=== PATIENT | male | born 1950 | race Caucasian/White ===

== ENCOUNTER 2018-08-21 12:47 | Inpatient (IN) | payer MEDICARE ==
[~2018-08-21] VITALS: Ht 172.7 cm; Wt 67.6 kg
[~2018-08-21 12:47] MED LIST: ASPI-612 PO; IBUP200C PO; SIMV20TA3 PO
[2018-08-21 13:21] LABS: BASO % 1 % (0-3); EOS # 0.2 x10^3/uL (0.0-0.7); EOS % 2 % (0-3); HEMATOCRIT 43.3 % (39.0-53.0); HEMOGLOBIN 14.2 g/dL (13.0-17.5); LYMPH # 2.1 x10^3/uL (1.0-4.8); LYMPH % 28 % (24-48); MEAN CORPUSCULAR HEMOGLOBIN 31 pg (25-35); MEAN CORPUSCULAR HGB CONC 33 g/dL (31-37); MEAN CORPUSCULAR VOLUME 94 fL (79-100); MONO # 0.7 x10^3/uL (0.0-1.1); MONO % 9 % (0-9); NEUT # 4.5 x10^3uL (1.8-7.7); NEUT % 61 % (31-73); PLATELET COUNT 180 x10^3/uL (140-400); RED BLOOD COUNT 4.62 x10^6/uL (4.30-5.70); RED CELL DISTRIBUTION WIDTH 14.5 % (11.5-14.5); WHITE BLOOD COUNT 7.4 x10^3/uL (4.0-11.0)
--- NOTE | 2018-08-21 13:24 | RAD ---
CHEST AP ONLY Clinical Indication: RAPID HEART RATE Comparison: CT chest without contrast May 24, 2016. Findings: The cardiomediastinal silhouette is normal. Lungs are clear. There is no pneumothorax. No pleural effusion is appreciated. There are old right posterior rib fractures. IMPRESSION: No acute cardiopulmonary process. Electronically signed by: Steve Linn MD (08/21/2018 1:21 PM) [id number]
[2018-08-21 13:29] LABS: CALCIUM 9.2 mg/dL (8.5-10.1); CREATININE 0.8 mg/dL (0.7-1.3); GFR 96.1; POTASSIUM 4.4 mmol/L (3.5-5.1)
[2018-08-21 13:32] LABS: ALBUMIN/GLOBULIN RATIO 1.2 (1.0-1.7); TOTAL BILIRUBIN 0.9 mg/dL (0.2-1.0); TOTAL PROTEIN 7.3 g/dL (6.4-8.2)
--- NOTE | 2018-08-21 13:49 | PHYS DOC ---
Past Medical History Past Medical History: Depression, GERD, Other Additional Past Medical Histor: PROSTATE CA, SLEEP APNEA Past Surgical History: Other Additional Past Surgical Histo: PROSTECTOMY D/T CA, Alcohol Use: Heavy Drug Use: None Adult General Chief Complaint Chief Complaint: BRADYCARDIA HPI HPI Patient is a 68-year-old male who was sent over from the surgery center secondary to a heart rate in the 30s. Anesthesia evaluated the patient prior to the surgical procedure and noted that he appeared to be in bigeminy but only perfusing rate of 30. Patient has no chest pain shortness of breath or dyspnea on exertion. He is never had any history of bradycardia or bigeminy in the past. He did have an unexplained fall recently but he did not hurt himself and he does describe some vague associated dizziness. He has not had any nausea or vomiting. He denies fever or chills.[] Review of Systems Review of Systems Constitutional: Denies fever or chills [] Eyes: Denies change in visual acuity, redness, or eye pain [] HENT: Denies nasal congestion or sore throat [] Respiratory: Denies cough or shortness of breath [] Cardiovascular: No additional information not addressed in HPI [] GI: Denies abdominal pain, nausea, vomiting, bloody stools or diarrhea [] : Denies dysuria or hematuria [] Musculoskeletal: Denies back pain or joint pain [] Integument: Denies rash or skin lesions [] Neurologic: Denies headache, focal weakness or sensory changes [] Endocrine: Denies polyuria or polydipsia [] All other systems were reviewed and found to be within normal limits, except as documented in this note. Allergies Allergies Allergies Coded Allergies Type Severity Reaction Last Updated Verified No Known Drug Allergies 09/21/13 No Physical Exam Physical Exam Constitutional: Well developed, well nourished, no acute distress, non-toxic appearance. [] HENT: Normocephalic, atraumatic, bilateral external ears normal, oropharynx moist, no oral exudates, nose normal. [] Eyes: PERRLA, EOMI, conjunctiva normal, no discharge. [] Neck: Normal range of motion, no tenderness, supple, no stridor. [] Cardiovascular:Heart rate regular rhythm, no murmur [] Lungs & Thorax: Bilateral breath sounds clear to auscultation [] Abdomen: Bowel sounds normal, soft, no tenderness, no masses, no pulsatile masses. [] Skin: Warm, dry, no erythema, no rash. [] Back: No tenderness, no CVA tenderness. [] Extremities: No tenderness, no cyanosis, no clubbing, ROM intact, no edema. [] Neurologic: Alert and oriented X 3, normal motor function, normal sensory function, no focal deficits noted. [] Psychologic: Affect normal, judgement normal, mood normal. [] Current Patient Data Vital Signs Vital Signs Date Time Temp Pulse Resp B/P (MAP) Pulse Ox O2 Delivery O2 Flow Rate FiO2 08/21/18 12:47 98.6 51 20 189/110 (136) 98 Room Air 98.6 Lab Values Laboratory Tests Test 08/21/18 13:05 White Blood Count 7.4 x10^3/uL (4.0-11.0) Red Blood Count 4.62 x10^6/uL (4.30-5.70) Hemoglobin 14.2 g/dL (13.0-17.5) Hematocrit 43.3 % (39.0-53.0) Mean Corpuscular Volume 94 fL (79-100) Mean Corpuscular Hemoglobin 31 pg (25-35) Mean Corpuscular Hemoglobin Concent 33 g/dL (31-37) Red Cell Distribution Width 14.5 % (11.5-14.5) Platelet Count 180 x10^3/uL (140-400) Neutrophils (%) (Auto) 61 % (31-73) Lymphocytes (%) (Auto) 28 % (24-48) Monocytes (%) (Auto) 9 % (0-9) Eosinophils (%) (Auto) 2 % (0-3) Basophils (%) (Auto) 1 % (0-3) Neutrophils # (Auto) 4.5 x10^3uL (1.8-7.7) Lymphocytes # (Auto) 2.1 x10^3/uL (1.0-4.8) Monocytes # (Auto) 0.7 x10^3/uL (0.0-1.1) Eosinophils # (Auto) 0.2 x10^3/uL (0.0-0.7) Basophils # (Auto) 0.0 x10^3/uL (0.0-0.2) Sodium Level 142 mmol/L (136-145) Potassium Level 4.4 mmol/L (3.5-5.1) Chloride Level 102 mmol/L (98-107) Carbon Dioxide Level 30 mmol/L (21-32) Anion Gap 10 (6-14) Blood Urea Nitrogen 17 mg/dL (8-26) Creatinine 0.8 mg/dL (0.7-1.3) Estimated GFR (Cockcroft-Gault) 96.1 BUN/Creatinine Ratio 21 (6-20) H Glucose Level 96 mg/dL (70-99) Calcium Level 9.2 mg/dL (8.5-10.1) Magnesium Level 2.0 mg/dL (1.8-2.4) Total Bilirubin 0.9 mg/dL (0.2-1.0) Aspartate Amino Transferase (AST) 23 U/L (15-37) Alanine Aminotransferase (ALT) 56 U/L (16-63) Alkaline Phosphatase 138 U/L (46-116) H Troponin I Quantitative < 0.017 ng/mL (0.000-0.055) Total Protein 7.3 g/dL (6.4-8.2) Albumin 4.0 g/dL (3.4-5.0) Albumin/Globulin Ratio 1.2 (1.0-1.7) Laboratory Tests 08/21/18 13:05 Laboratory Tests 08/21/18 13:05 EKG EKG EKG: Patient is in bigeminy rate of 60[] Radiology/Procedures Radiology/Procedures [] Impressions: PROCEDURE: CHEST AP ONLY CHEST AP ONLY Clinical Indication: RAPID HEART RATE Comparison: CT chest without contrast May 24, 2016. Findings: The cardiomediastinal silhouette is normal. Lungs are clear. There is no pneumothorax. No pleural effusion is appreciated. There are old right posterior rib fractures. IMPRESSION: No acute cardiopulmonary process. Course & Med Decision Making Course & Med Decision Making Pertinent Labs and Imaging studies reviewed. (See chart for details) [ED course: Evaluation reveals a 68-year-old symptom-free male who is having some bradycardia and bigeminy. He is asymptomatic with this but he will need to be admitted for evaluation. I spoke with Dr. Puga who agreed to accept the patient for admission. Melisa, the nurse practitioner with cardiology, evaluated the patient in the ED and agreed that the patient needed to be observed overnight.] Dragon Disclaimer Dragon Disclaimer This electronic medical record was generated, in whole or in part, using a voice recognition dictation system. Departure Departure Impression: Primary Impression: Bigeminal rhythm Disposition: ADMITTED INPATIENT Admitting Physician: Dylan Will Condition: GUARDED Referrals: KIMBERLEE SUH (PCP) MICHAEL DONIS DO Aug 21, 2018 13:49
[2018-08-21] MEDS ORDERED: PANT20TA2 PO (13:55)
[2018-08-21] MEDS ORDERED: CITA20TA6 PO (13:55)
[2018-08-21] MEDS ORDERED: OXYB10TA PO (13:55)
[2018-08-21] MEDS ORDERED: ALPR1TAB2 PO (13:55)
--- NOTE | 2018-08-21 15:19 | EKG ---
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
--- NOTE | 2018-08-21 16:02 | HP ---
ADMIT DATE: 08/21/2018 CHIEF COMPLAINT: Bradycardia. HISTORY OF PRESENT ILLNESS: The patient is a pleasant 68-year-old male who was going to have surgery on his right eye today. He was at the surgery center, and they noted that he had bradycardia into the 30s. They sent him into the ER for evaluation. He is now here where we have noted him to be bradycardic into the 40s. We have not documented any 30s just yet. He describes some dizziness, states he tripped and/or passed out the other day. His states this has been occurring off and on for some time, but he has not been telling people. I have discussed the case with ER physician. We are going to admit the patient and consult Cardiology. PAST MEDICAL HISTORY: GERD, depression, prostate cancer, sleep apnea, prostatectomy, heavy alcohol use, right lower eyelid entropion. ALLERGIES: None. FAMILY HISTORY: Coronary artery disease. SOCIAL HISTORY: He drinks, no to smoking, drugs. He is . MEDICATIONS: Reviewed. He is on citalopram, Xanax, Protonix and oxybutynin. REVIEW OF SYSTEMS: GENERAL: No history of weight change, weakness or fevers. SKIN: No bruising, hair changes or rashes. EYES: No blurred, double or loss of vision. NOSE AND THROAT: No history of nosebleeds, hoarseness or sore throat. HEART: No history of palpitations, chest pain or shortness of breath on exertion. LUNGS: Denies cough, hemoptysis, wheezing or shortness of breath. GASTROINTESTINAL: Denies changes in appetite, nausea, vomiting, diarrhea or constipation. GENITOURINARY: No history of frequency, urgency, hesitancy or nocturia. NEUROLOGIC: Denies history of numbness, tingling, tremor or weakness. PSYCHIATRIC: No history of panic, anxiety or depression. ENDOCRINE: No history of heat or cold intolerance, polyuria or polydipsia. EXTREMITIES: Denies muscle weakness, joint pain, pain on walking or stiffness. PHYSICAL EXAMINATION: VITAL SIGNS: Temperature 98, pulse 50, respirations 18, blood pressure 189/70. GENERAL: He is alert, cooperative, requesting to go home. His is here. She is a good support for him. She is an RN who used to work here and still works p.r.n. HEART: Distant S1, S2. Bradycardic. LUNGS: Clear. ABDOMEN: Soft. EXTREMITIES: No edema. SKIN: No rashes. ENDOCRINE: No thyromegaly. LYMPHATICS: No cervical nodes. HEMATOPOIETIC: No bruising. LABORATORY DATA: Hematology is normal. Electrolytes are normal. ASSESSMENT AND PLAN: Bradycardia. The patient has been admitted. We will do cardiac monitoring, serial enzymes, serial EKGs, echocardiogram, consult Cardiology. Home meds. Deep venous thrombosis prophylaxis, physical therapy, occupational therapy. LONG-TERM PROGNOSIS: Guarded. NIURKA DOWD DO DR: LA/viki JOB#: [id number] / [id number]
[2018-08-21 16:10] VITALS: BP 173/67
--- NOTE | 2018-08-21 16:21 | PDOC2 ---
SHAD BALBUENA BLEACHER LARD 08/21/18 1621: CARDIAC CONSULT DATE OF CONSULT Date of Consult DATE: 08/21/18 TIME: 16:01 REASON FOR CONSULT Reason for Consult: bradycardia REFERRING PHYSICIAN Referring Physician: Dr. Cerda SOURCE Source: Chart review, Patient HISTORY OF PRESENT ILLNESS HISTORY OF PRESENT ILLNESS This is a 68 yo male who presented from surgical center due to arrhythmia. Patient has a history of inverted eyelid. Was scheduled to have corrective surgery today. Presented to surgical center and placed on telemetry monitoring prior to surgery. Was noted to be in bigeminy with an atrial rate of 30. Was referred to the ED for further evaluation and treatment. Patient asymptomatic. Denies any specific complaints including dizziness, syncope, diaphoresis, SOA, chest pain, or nausea/vomiting. 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 No previous h/o arrhythmias. concerned that he has been more forgetful over the last couple of months. Friday evening fell on the kitchen floor. reports no LOC. Patient cannot recall fall whatsoever. No complaints of dizziness have been report to . No previous history of cardiac disease. Heart rhythm presently intermittent between NSR and bigeminy with a rate near 60. PAST MEDICAL HISTORY Cardiovascular: Hyperlipidemia, Other (AAA followed by Dr. Inman) Pulmonary: Other (REHAN- no CPAP) CENTRAL NERVOUS SYSTEM: Other (no pertinet hx) GI: GERD Heme/Onc: No pertinent hx Hepatobiliary: No pertinent hx Psych: Anxiety Musculoskeletal: Osteoarthritis Rheumatologic: No pertinent hx Infectious disease: No pertinent hx ENT: No pertinent hx Renal/: Prostate Ca. Endocrine: No pertinent hx Dermatology: No pertinent hx PAST SURGICAL HISTORY Past Surgical History: Cholecystectomy, Tonsillectomy, Other (prostatectomy ) SOCIAL HISTORY Smoke: No ALCOHOL: none Drugs: None Lives: with Family ALLERGIES ALLERGIES: Coded Allergies: No Known Drug Allergies (Unverified , 09/21/13) ROS Review of System 14 point ROS conducted with pertinent positives noted above in HPI. PHYSICAL EXAM General: Alert, Oriented X3, Cooperative, No acute distress HEENT: Atraumatic, EOMI Lungs: Clear to auscultation, Normal air movement Heart: Regular rate, Normal S1, Normal S2, Other (SR with intermittent bigeminy ) Extremities: No edema, Normal pulses Skin: No breakdown, No significant lesion Neuro: Normal speech, Sensation intact Psych/Mental Status: Mental status NL, Mood NL MUSCULOSKELETAL: Osteoarthritic changes both hands VITALS VITALS Vital Signs Date Time Temp Pulse Resp B/P (MAP) Pulse Ox O2 Delivery O2 Flow Rate FiO2 08/21/18 14:50 60 26 152/70 (97) 95 Room Air 08/21/18 12:47 98.6 98.6 LABS Lab: Laboratory Tests Test 08/21/18 13:05 White Blood Count 7.4 x10^3/uL (4.0-11.0) Red Blood Count 4.62 x10^6/uL (4.30-5.70) Hemoglobin 14.2 g/dL (13.0-17.5) Hematocrit 43.3 % (39.0-53.0) Mean Corpuscular Volume 94 fL (79-100) Mean Corpuscular Hemoglobin 31 pg (25-35) Mean Corpuscular Hemoglobin Concent 33 g/dL (31-37) Red Cell Distribution Width 14.5 % (11.5-14.5) Platelet Count 180 x10^3/uL (140-400) Neutrophils (%) (Auto) 61 % (31-73) Lymphocytes (%) (Auto) 28 % (24-48) Monocytes (%) (Auto) 9 % (0-9) Eosinophils (%) (Auto) 2 % (0-3) Basophils (%) (Auto) 1 % (0-3) Neutrophils # (Auto) 4.5 x10^3uL (1.8-7.7) Lymphocytes # (Auto) 2.1 x10^3/uL (1.0-4.8) Monocytes # (Auto) 0.7 x10^3/uL (0.0-1.1) Eosinophils # (Auto) 0.2 x10^3/uL (0.0-0.7) Basophils # (Auto) 0.0 x10^3/uL (0.0-0.2) Sodium Level 142 mmol/L (136-145) Potassium Level 4.4 mmol/L (3.5-5.1) Chloride Level 102 mmol/L (98-107) Carbon Dioxide Level 30 mmol/L (21-32) Anion Gap 10 (6-14) Blood Urea Nitrogen 17 mg/dL (8-26) Creatinine 0.8 mg/dL (0.7-1.3) Estimated GFR (Cockcroft-Gault) 96.1 BUN/Creatinine Ratio 21 (6-20) Glucose Level 96 mg/dL (70-99) Calcium Level 9.2 mg/dL (8.5-10.1) Magnesium Level 2.0 mg/dL (1.8-2.4) Total Bilirubin 0.9 mg/dL (0.2-1.0) Aspartate Amino Transf (AST/SGOT) 23 U/L (15-37) Alanine Aminotransferase (ALT/SGPT) 56 U/L (16-63) Alkaline Phosphatase 138 U/L (46-116) Troponin I Quantitative < 0.017 ng/mL (0.000-0.055) Total Protein 7.3 g/dL (6.4-8.2) Albumin 4.0 g/dL (3.4-5.0) Albumin/Globulin Ratio 1.2 (1.0-1.7) ASSESSMENT/PLAN ASSESSMENT/PLAN 1. Arrhythmia; bigeminy. asymptomatic. Initially presented to ED in [facility], but back in NSR prior to arrival on the floor. 2. Accelerated hypertension 3. Hyperlipidemia; previously taken off statin 4. REHAN- no CPAP 5. GERD Recommendations Check TSH] Hydralazine IV PRN. Start lisinopril if blood pressure remains elevated. Obtain echo to assess LV systolic function (may be done as an outpatient) Monitor telemetry overnight. If no significant arrhythmias noted overnight, may discharge from a CV standpoint and will arrange for outpatient event monitor. ELAINA ZAMARRIPA MD 08/21/182055: CARDIAC CONSULT ASSESSMENT/PLAN ASSESSMENT/PLAN Patient seen and examined. Agree with MORTGAGE LENDER's assessment and plan. Bigeminy resolved Mg level normal BP better controlled Plan outpatient echo and event monitor for further evaluation Thank you for your consultation SHAD BALBUENA APRN Aug 21, 2018 16:21 ELAINA ZAMARRIPA MD Aug 21, 2018 20:56
[2018-08-21] MEDS ORDERED: hydrALAZINE 20 MG/ML VIAL. IVP PRN (16:30)
[2018-08-21 17:08] LABS: CHOLESTEROL/HDL RATIO 2.2
[2018-08-21 18:18] VITALS: BP 132/75
[2018-08-21 19:00] VITALS: BP 138/68
[2018-08-21] MEDS: ALPRAZolam 1 MG TABLET PO SCH (21:10)
[2018-08-21 23:13] VITALS: BP 132/75
[2018-08-22 03:00] VITALS: BP 129/74
[2018-08-22] MEDS ORDERED: PANTOPRAZOLE 40 MG TABLET.DR. PO SCH (07:30)
[2018-08-22 08:05] VITALS: BP 147/78
[2018-08-22] MEDS: ALPRAZolam 1 MG TABLET PO SCH (08:44)
[2018-08-22] MEDS ORDERED: OXYBUTYNIN CHLORIDE 5 MG TABLET PO SCH (09:00)
[2018-08-22] MEDS ORDERED: CITALOPRAM 20 MG TABLET. PO SCH (09:00)
[2018-08-22 11:11] VITALS: BP 136/58
--- NOTE | 2018-08-22 11:41 | PDOC ---
PROGRESS NOTES Chief Complaint Chief Complaint Bigeminy/Bradycardia GERD Depression History of prostate cancer s/p prostatectomy Sleep apnea Heavy alcohol use History of Present Illness History of Present Illness Patient was seen and examined in his room this morning. He was lying in bed. laboratory monitor shows intermittent bigeminy. Cardiology following. Cardiac workup in progress. Heart rate is in the high 40s to low 50s. Discussed with RN. Vitals Vitals Vital Signs Date Time Temp Pulse Resp B/P (MAP) Pulse Ox O2 Delivery O2 Flow Rate FiO2 08/22/18 11:11 98.2 56 17 136/58 (84) 99 Room Air 98.2 Physical Exam General: Alert, Oriented X3, Cooperative, No acute distress Heart: Regular rate, Normal S1, Normal S2, Other (SR with intermittent bigeminy ) Lungs: Clear, Other (no rhonchi) Abdomen: Soft, No tenderness Extremities: No clubbing, No cyanosis Skin: No rashes, No breakdown, No significant lesion Labs LABS Laboratory Tests Test 08/21/18 13:05 White Blood Count 7.4 x10^3/uL (4.0-11.0) Red Blood Count 4.62 x10^6/uL (4.30-5.70) Hemoglobin 14.2 g/dL (13.0-17.5) Hematocrit 43.3 % (39.0-53.0) Mean Corpuscular Volume 94 fL (79-100) Mean Corpuscular Hemoglobin 31 pg (25-35) Mean Corpuscular Hemoglobin Concent 33 g/dL (31-37) Red Cell Distribution Width 14.5 % (11.5-14.5) Platelet Count 180 x10^3/uL (140-400) Neutrophils (%) (Auto) 61 % (31-73) Lymphocytes (%) (Auto) 28 % (24-48) Monocytes (%) (Auto) 9 % (0-9) Eosinophils (%) (Auto) 2 % (0-3) Basophils (%) (Auto) 1 % (0-3) Neutrophils # (Auto) 4.5 x10^3uL (1.8-7.7) Lymphocytes # (Auto) 2.1 x10^3/uL (1.0-4.8) Monocytes # (Auto) 0.7 x10^3/uL (0.0-1.1) Eosinophils # (Auto) 0.2 x10^3/uL (0.0-0.7) Basophils # (Auto) 0.0 x10^3/uL (0.0-0.2) Sodium Level 142 mmol/L (136-145) Potassium Level 4.4 mmol/L (3.5-5.1) Chloride Level 102 mmol/L (98-107) Carbon Dioxide Level 30 mmol/L (21-32) Anion Gap 10 (6-14) Blood Urea Nitrogen 17 mg/dL (8-26) Creatinine 0.8 mg/dL (0.7-1.3) Estimated GFR (Cockcroft-Gault) 96.1 BUN/Creatinine Ratio 21 (6-20) Glucose Level 96 mg/dL (70-99) Calcium Level 9.2 mg/dL (8.5-10.1) Magnesium Level 2.0 mg/dL (1.8-2.4) Total Bilirubin 0.9 mg/dL (0.2-1.0) Aspartate Amino Transf (AST/SGOT) 23 U/L (15-37) Alanine Aminotransferase (ALT/SGPT) 56 U/L (16-63) Alkaline Phosphatase 138 U/L (46-116) Troponin I Quantitative < 0.017 ng/mL (0.000-0.055) Total Protein 7.3 g/dL (6.4-8.2) Albumin 4.0 g/dL (3.4-5.0) Albumin/Globulin Ratio 1.2 (1.0-1.7) Triglycerides Level 63 mg/dL (0-150) Cholesterol Level 152 mg/dL (0-200) LDL Cholesterol, Calculated 70 mg/dL (0-100) VLDL Cholesterol, Calculated 13 mg/dL (0-40) Non-HDL Cholesterol Calculated 83 mg/dL (0-129) HDL Cholesterol 69 mg/dL (40-60) Cholesterol/HDL Ratio 2.2 Thyroid Stimulating Hormone (TSH) 0.513 uIU/mL (0.358-3.74) Review of Systems Review of Systems Complains of heart palpitations and weakness. Denies headache or chest pain. Assessment and Plan Assessmemt and Plan Assessment: Bigeminy/Bradycardia GERD Depression History of prostate cancer s/p prostatectomy Sleep apnea Heavy alcohol use Plan: 1. Cardiac monitoring 2. Await cardiology input 3. Serial enzymes 4. Serial EKGs 5. Monitor labs 6. Home meds 7. PT/OT 8. Appreciate subspecialty input Comment Review of Relevant I have reviewed the following items yovana (where applicable) has been applied. Labs Laboratory Tests Test 08/21/18 13:05 White Blood Count 7.4 x10^3/uL (4.0-11.0) Red Blood Count 4.62 x10^6/uL (4.30-5.70) Hemoglobin 14.2 g/dL (13.0-17.5) Hematocrit 43.3 % (39.0-53.0) Mean Corpuscular Volume 94 fL (79-100) Mean Corpuscular Hemoglobin 31 pg (25-35) Mean Corpuscular Hemoglobin Concent 33 g/dL (31-37) Red Cell Distribution Width 14.5 % (11.5-14.5) Platelet Count 180 x10^3/uL (140-400) Neutrophils (%) (Auto) 61 % (31-73) Lymphocytes (%) (Auto) 28 % (24-48) Monocytes (%) (Auto) 9 % (0-9) Eosinophils (%) (Auto) 2 % (0-3) Basophils (%) (Auto) 1 % (0-3) Neutrophils # (Auto) 4.5 x10^3uL (1.8-7.7) Lymphocytes # (Auto) 2.1 x10^3/uL (1.0-4.8) Monocytes # (Auto) 0.7 x10^3/uL (0.0-1.1) Eosinophils # (Auto) 0.2 x10^3/uL (0.0-0.7) Basophils # (Auto) 0.0 x10^3/uL (0.0-0.2) Sodium Level 142 mmol/L (136-145) Potassium Level 4.4 mmol/L (3.5-5.1) Chloride Level 102 mmol/L (98-107) Carbon Dioxide Level 30 mmol/L (21-32) Anion Gap 10 (6-14) Blood Urea Nitrogen 17 mg/dL (8-26) Creatinine 0.8 mg/dL (0.7-1.3) Estimated GFR (Cockcroft-Gault) 96.1 BUN/Creatinine Ratio 21 (6-20) Glucose Level 96 mg/dL (70-99) Calcium Level 9.2 mg/dL (8.5-10.1) Magnesium Level 2.0 mg/dL (1.8-2.4) Total Bilirubin 0.9 mg/dL (0.2-1.0) Aspartate Amino Transf (AST/SGOT) 23 U/L (15-37) Alanine Aminotransferase (ALT/SGPT) 56 U/L (16-63) Alkaline Phosphatase 138 U/L (46-116) Troponin I Quantitative < 0.017 ng/mL (0.000-0.055) Total Protein 7.3 g/dL (6.4-8.2) Albumin 4.0 g/dL (3.4-5.0) Albumin/Globulin Ratio 1.2 (1.0-1.7) Triglycerides Level 63 mg/dL (0-150) Cholesterol Level 152 mg/dL (0-200) LDL Cholesterol, Calculated 70 mg/dL (0-100) VLDL Cholesterol, Calculated 13 mg/dL (0-40) Non-HDL Cholesterol Calculated 83 mg/dL (0-129) HDL Cholesterol 69 mg/dL (40-60) Cholesterol/HDL Ratio 2.2 Thyroid Stimulating Hormone (TSH) 0.513 uIU/mL (0.358-3.74) Laboratory Tests Test 08/21/18 13:05 White Blood Count 7.4 x10^3/uL (4.0-11.0) Red Blood Count 4.62 x10^6/uL (4.30-5.70) Hemoglobin 14.2 g/dL (13.0-17.5) Hematocrit 43.3 % (39.0-53.0) Mean Corpuscular Volume 94 fL (79-100) Mean Corpuscular Hemoglobin 31 pg (25-35) Mean Corpuscular Hemoglobin Concent 33 g/dL (31-37) Red Cell Distribution Width 14.5 % (11.5-14.5) Platelet Count 180 x10^3/uL (140-400) Neutrophils (%) (Auto) 61 % (31-73) Lymphocytes (%) (Auto) 28 % (24-48) Monocytes (%) (Auto) 9 % (0-9) Eosinophils (%) (Auto) 2 % (0-3) Basophils (%) (Auto) 1 % (0-3) Neutrophils # (Auto) 4.5 x10^3uL (1.8-7.7) Lymphocytes # (Auto) 2.1 x10^3/uL (1.0-4.8) Monocytes # (Auto) 0.7 x10^3/uL (0.0-1.1) Eosinophils # (Auto) 0.2 x10^3/uL (0.0-0.7) Basophils # (Auto) 0.0 x10^3/uL (0.0-0.2) Sodium Level 142 mmol/L (136-145) Potassium Level 4.4 mmol/L (3.5-5.1) Chloride Level 102 mmol/L (98-107) Carbon Dioxide Level 30 mmol/L (21-32) Anion Gap 10 (6-14) Blood Urea Nitrogen 17 mg/dL (8-26) Creatinine 0.8 mg/dL (0.7-1.3) Estimated GFR (Cockcroft-Gault) 96.1 BUN/Creatinine Ratio 21 (6-20) Glucose Level 96 mg/dL (70-99) Calcium Level 9.2 mg/dL (8.5-10.1) Magnesium Level 2.0 mg/dL (1.8-2.4) Total Bilirubin 0.9 mg/dL (0.2-1.0) Aspartate Amino Transf (AST/SGOT) 23 U/L (15-37) Alanine Aminotransferase (ALT/SGPT) 56 U/L (16-63) Alkaline Phosphatase 138 U/L (46-116) Troponin I Quantitative < 0.017 ng/mL (0.000-0.055) Total Protein 7.3 g/dL (6.4-8.2) Albumin 4.0 g/dL (3.4-5.0) Albumin/Globulin Ratio 1.2 (1.0-1.7) Triglycerides Level 63 mg/dL (0-150) Cholesterol Level 152 mg/dL (0-200) LDL Cholesterol, Calculated 70 mg/dL (0-100) VLDL Cholesterol, Calculated 13 mg/dL (0-40) Non-HDL Cholesterol Calculated 83 mg/dL (0-129) HDL Cholesterol 69 mg/dL (40-60) Cholesterol/HDL Ratio 2.2 Thyroid Stimulating Hormone (TSH) 0.513 uIU/mL (0.358-3.74) Medications Current Medications Hydralazine HCl (Apresoline Inj) 10 mg PRN Q4HRS PRN IVP ELEVATED BP, SEE COMMENTS; Start 08/21/18 at 16:30 Alprazolam (Xanax) 1 mg BID PO Last administered on 08/22/18at 08:44; Start at 21:00 Citalopram Hydrobromide (CeleXA) 20 mg DAILY PO ; Start 08/22/18 at 09:00 Oxybutynin Chloride (Ditropan) 5 mg BID PO ; Start 08/22/18 at 09:00 Pantoprazole Sodium (Protonix) 40 mg BIDAC PO Last administered on 08/22/18at 08: 44; Start 08/22/18 at 07:30 Active Scripts Active Reported Xanax (Alprazolam) 1 Mg Tablet 1 Tab PO BID Protonix (Pantoprazole Sodium) 20 Mg Tablet.dr 40 Mg PO BIDAC Citalopram Hbr (Citalopram Hydrobromide) 20 Mg Tablet 1 Tab PO DAILY Oxybutynin Chloride Er (Oxybutynin Chloride) 10 Mg Tab.er.24 1 Tab PO DAILY Vitals/I & O Vital Sign - Last 24 Hours 08/21/18 08/21/18 08/21/18 08/21/18 12:47 13:50 14:20 14:50 Temp 98.6 98.6 Pulse 51 60 64 60 Resp 20 19 23 26 B/P (MAP) 189/110 (136) 165/66 (99) 151/65 (93) 152/70 (97) Pulse Ox 98 93 93 95 O2 Delivery Room Air Room Air Room Air Room Air 08/21/18 08/21/18 08/21/18 08/21/18 15:30 16:00 16:10 18:18 Temp 98.6 98.6 Pulse 50 54 47 Resp 28 21 20 B/P (MAP) 157/78 (104) 152/80 (104) 173/67 (102) 132/75 (94) Pulse Ox 95 95 O2 Delivery Room Air Room Air Room Air 08/21/18 08/21/18 08/21/18 08/22/18 19:00 20:11 23:13 03:00 Temp 97.9 98.1 98.0 97.9 98.1 98.0 Pulse 45 46 42 Resp 20 18 18 B/P (MAP) 138/68 (91) 132/75 (94) 129/74 (92) Pulse Ox 97 96 96 O2 Delivery Room Air Room Air Room Air Room Air 08/22/18 08/22/18 08/22/18 07:00 08:05 11:11 Temp 97.8 98.2 97.8 98.2 Pulse 52 56 Resp 16 17 B/P (MAP) 147/78 (101) 136/58 (84) Pulse Ox 100 99 O2 Delivery Room Air Room Air Room Air Intake and Output 08/21/18 08/21/18 08/22/18 15:00 23:00 07:00 Intake Total 240 ml 150 ml Output Total 0 ml Balance 240 ml 150 ml NIURKA DOWD III DO Aug 22, 2018 11:40
--- NOTE | 2018-08-22 14:08 | NUR ---
Discharge teaching completed. two IV sites discontinued without difficulty. Follow up instructions completed. Pt states he understands his discharge teaching and follow up instructions. He was escorted out by staff via wheelchair. He was discharged to home with spouse.
--- NOTE | 2018-08-23 02:03 | DS ---
DATE OF DISCHARGE: 08/22/2018 ADMISSION DIAGNOSES: Bigeminy and bradycardia. DISCHARGE DIAGNOSIS: Resolving bradycardia, intermittent bigeminy. CONSULTS: Cardiology. PROCEDURES: None. HOSPITAL COURSE: The patient is a pleasant 68-year-old male who was going to have a procedure on his eye to repair a right lower lid entropion. While he was at the surgery center in the preop area, they noticed that he was bradycardic. He was told to go to the ER. We admitted the patient. We consulted with Cardiology. We checked serial enzymes, serial EKGs, did cardiac monitoring, and this morning when I saw and examined, he looked great. He was intermittently in and out of bigeminy. Cardiology has cleared him for discharge and were going to follow up with him closely in a couple of weeks. DISPOSITION: Home. ACTIVITY: As tolerated. DIET: Low sodium. MEDICATIONS: Please see the MRAD. TOTAL TIME: 32 minutes. NIURKA DOWD DO DR: LA/viki JOB#: [id number] / [id number]
[2018-11-02] MEDS ORDERED: ATOR20TA58 PO (12:14)
[2018-11-02] MEDS ORDERED: ASPI325T11 PO (12:14)
[2018-11-02] MEDS ORDERED: AMIO200T4 PO (12:14)
[2018-11-02] MEDS ORDERED: OXYC5TAB4 PO (12:14)
== END 2018-08-22 14:10 | disposition home or self-care (01) | DRG 310 ==
LOC: ER 12:47 → 2 NORTH 14:27
PROVIDERS: ADMIT Internal Medicine; ATTEND Internal Medicine
DX: I49.8 Other specified cardiac arrhythmias (principal); Z85.46 Personal history of malignant neoplasm of prostate; K21.9 Gastro-esophageal reflux disease without esophagitis; E78.5 Hyperlipidemia, unspecified; I10 Essential (primary) hypertension; F41.9 Anxiety disorder, unspecified; M19.90 Unspecified osteoarthritis, unspecified site; H02.002 Unspecified entropion of right lower eyelid; G47.33 Obstructive sleep apnea (adult) (pediatric); F32.9 Major depressive disorder, single episode, unspecified; Z82.49 Family history of ischemic heart disease and other diseases of the circulatory system; Z90.79 Acquired absence of other genital organ(s)
CPT/HCPCS: 36415; 71045; 80053; 80061; 83735; 84443; 84484; 85025; 93005; 99285-25

== ENCOUNTER → 2018-09-17 | Outpatient (CLI) | payer MEDICARE ==
[2018-08-22 11:11] VITALS: BP 136/58
[~2018-09-17] MED LIST changes: +ALPR1TAB2 PO; +AMIO200T4 PO; +ASPI325T11 PO; +ATOR20TA58 PO; +CITA20TA6 PO; +OXYB10TA PO; +OXYC5TAB4 PO; +PANT20TA2 PO
--- NOTE | 2018-09-17 09:57 | CARD ---
MR#: [id number] Date of Study: 09/17/2018 Ordering Physician: ELAINA ZAMARRIPA, Referring Physician: ELAINA ZAMARRIPA Tech: Consuelo Collazo GRICEL APPROVED REPORT EXAM: Two-dimensional and M-mode echocardiogram with Doppler and color Doppler. Other Information Quality : GoodHR: 45bpm Rhythm : Bradycardia INDICATION Arrhythmia 2D DIMENSIONS RVDd3.1 (2.9-3.5cm)Left Atrium(2D)4.7 (1.6-4.0cm) IVSd1.0 (0.7-1.1cm)Aortic Root(2D)3.5 (2.0-3.7cm) LVDd5.8 (3.9-5.9cm)LVOT Diameter2.3 (1.8-2.4cm) PWd0.9 (0.7-1.1cm)LVDs3.6 (2.5-4.0cm) FS (%) 37.2 %SV110.8 ml LVEF(%)66.4 (>50%) Aortic Valve AoV Peak Jay.157.3cm/sAoV VTI30.4cm AO Peak GR.9.9mmHgLVOT Peak Jay.145.2cm/s AO Mean GR.4mmHgAVA (VMAX)3.89cm2 YEIMY (VTI)3.80cm2 Mitral Valve MV E Pfgakjnb23.0cm/sMV DECEL XISY793rt MV A Awizebqv64.7cm/sE/A Ratio1.0 MV A Xfvgtloq970oh Pulmonary Valve PV Peak Wxpphjjy08.9cm/s Tricuspid Valve TR P. Mewodjsx593vu/sRAP VCYXMHQD7ttSw TR Peak Gr.52bdIeLPYW88fvZi LEFT VENTRICLE The left ventricle is normal size. There is normal left ventricular wall thickness. The left ventricu lar systolic function is normal and the ejection fraction is within normal range. The Ejection Fracti on is 60-65%. There is normal LV segmental wall motion. Transmitral Doppler flow pattern is Grade I-a bnormal relaxation pattern. RIGHT VENTRICLE The right ventricle is normal size. There is normal right ventricular wall thickness. The right ventr icular systolic function is normal. ATRIA The left atrium is moderately dilated. The right atrium is mildly dilated. The interatrial septum is intact with no evidence for an atrial septal defect or patent foramen ovale as noted on 2-D or Dopple r imaging. There is lipomatous hypertrophy of the atrial septum noted. AORTIC VALVE The aortic valve is moderately calcified. The aortic valve is trileaflet. Doppler and Color Flow reve aled no significant aortic regurgitation. There is no significant aortic valvular stenosis. MITRAL VALVE The mitral valve is normal in structure and function. There is no evidence of mitral valve prolapse. There is no mitral valve stenosis. Doppler and Color-flow revealed mild mitral regurgitation. TRICUSPID VALVE The tricuspid valve is normal in structure and function. Doppler and Color Flow revealed trace tricus pid regurgitation.The PA pressure was estimated at 40 mmHg. There is no tricuspid valve prolapse or v egetation. There is no tricuspid valve stenosis. PULMONIC VALVE Doppler and Color Flow revealed mild pulmonic valvular regurgitation. There is no pulmonic valvular s tenosis. GREAT VESSELS The aortic root is normal in size. The ascending aorta is Mildly dilated at 3.9 cm The IVC is dilated and collapses <50% with inspiration. PERICARDIAL EFFUSION There is no evidence of significant pericardial effusion. Critical Notification Critical Value: No <Conclusion> The left ventricular systolic function is normal and the ejection fraction is within normal range. Th e Ejection Fraction is 60-65%. There is normal LV segmental wall motion. Doppler and Color Flow revealed trace tricuspid regurgitation. The PA pressure was estimated at 40 mm Hg. The ascending aorta is Mildly dilated at 3.9 cm Signed by : Jake Sands, Electronically Approved : 09/17/2018 09:56:29
== END | disposition home or self-care (01) ==
LOC: ECHO 08:29
PROVIDERS: ATTEND Internal Medicine Cardiovascular Disease
DX: I08.8 Other rheumatic multiple valve diseases (principal); I77.819 Aortic ectasia, unspecified site; R00.1 Bradycardia, unspecified
CPT/HCPCS: 93306

== ENCOUNTER → 2018-10-02 | Outpatient (CLI) | payer MEDICARE ==
[~2018-10-02] MED LIST changes: +REGADENOSON 0.4 MG/5 ML DISP.SYRIN. IV ONE
--- NOTE | 2018-10-02 12:54 | RAD ---
MR#: [id number] Date of Study: 10/02/2018 Ordering Physician: ELAINA ZAMARRIPA Referring Physician: MIKHAIL SEE Tech: DERIK Mojica APPROVED REPORT Test Type: Pharmacological Stress Nurse/Tech: Trudy Estrella R.N. Test Indications: Pre-Op - Bradycardia Cardiac History: Bradycardia, Medications: See Electronic Medical Record Medical History: See Electronic Medical Record Resting ECG: SB w/ ST elevation leads V2-V6 Resting Heart Rate: 41 bpm Resting Blood Pressure: 159/72mmHg Pretest Chest Pain: No chest pain Nurse/Tech Notes S1S2, lungs CTA Consent: The procedure was explained to the patient in lay terms. Informed consent was witnessed. Linus eout was entered into [employer]. History and Stress Test performed by DERIK Mojica Pharm. Details Pharmacologic stress testing was performed using 0.4mg per 5ml of regadenoson given intravenously ove r 7-10 seconds. Stress Symptoms SOA POST EXERCISE Reason for Termination: Reached target heart rate Max HR: 75 bpm Max Blood Pressure: 151/75mmHg Blood Pressure response to exercise: Normal blood pressure response during stress. Heart Rate response to exercise: wnl Chest Pain: No. Arrhythmia: No. ST Change: No. INTERPRETATION Stress EKG Conclusion: The resting EKG shows a sinus bradycardia and nonspecific ST-T wave changes. The stress EKG shows no significant changes from baseline. No EKG evidence of stressed induced ischemia. Imaging Protocol IMAGE PROTOCOL: Rest Tc-99m/stress Tc-99m 1 day Rest: Stress: Viability: Radiopharm.Tc99m OmpdtedxkHw90k Sestamibi Dose10.6mCi 33mCi Duration 16min. 13min. Img Date 10/02/2018 10/02/2018 Inj-Img Uujx62xyg. 75min. Rest Admin Site:IV - Right ForearmAdministrator:Cait Jenkins, RT (R)(N) Stress Admin Site: IV - Right ForearmAdministrator: EMEKA Rendon, ARRT (R)(N) STRESS DATA End Diast. Vol.141.0mlLVEDV index BSA78.0ml End Syst. Vol.72.0mlLVESV index BSA40.0ml Myocardial Aywt000.0gEject. Dddhoqki87.0% Stress Scores Regional WT0.00Summed WT12.00 Regional WM0.00Summed WM16.00 LV Perfusion The stress scans show a mild to moderate inferior wall defect. The rest scans show a mild inferior wall defect. Nuclear imaging is suggestive of a previous inferior infarct with an adjacent area of significant rev ersible ischemia. Wall Motion Left ventricular systolic function is mildly decreased at 49% with mild inferior septal hypokinesis. LV Perf. Quant 17 Seg. SSS10.00 17 Seg. SRS9.00 17 Seg. SDS4.00 Stress Defect Extent (% LAD)15.00Rest Defect Extent (% LAD)12.50Rev. Defect Extent (% LAD)0.00 Stress Defect Extent (% LCX) 0.00Rest Defect Extent (% LCX)2.50Rev. Defect Extent (% LCX)0.00 Stress Defect Extent (% RCA)54.40Rest Defect Extent (% RCA)20.00Rev. Defect Extent (% RCA)36.70 Stress Defect Extent (% BOBBY)22.80Rest Defect Extent (% BOBBY)20.90Rev. Defect Extent (% BOBBY)8.70 Conclusion 1. No EKG evidence of stressed induced ischemia. 2. Nuclear imaging shows a inferior infarct with an adjacent area of significant reversible ischemia. 3. Left ventricular systolic function is mildly decreased at 49% with mild hypokinesis in the inferio r septal region. 4. Moderate to moderately high risk Lexiscan stress test suggestive of inferior septal reversible isc hemia and an ejection fraction of 49%. Signed by : Jose Plaza MD Electronically Approved : 10/02/2018 12:54:11
== END | disposition home or self-care (01) ==
LOC: NM 08:00
PROVIDERS: ATTEND Internal Medicine Cardiovascular Disease
DX: Z01.810 Encounter for preprocedural cardiovascular examination (principal); I21.19 ST elevation (STEMI) myocardial infarction involving other coronary artery of inferior wall; R00.1 Bradycardia, unspecified
CPT/HCPCS: 78452; 93017; 96374; A9500; J2785

== ENCOUNTER 2018-10-16 07:11 | Outpatient (CLI) | payer MEDICARE ==
[~2018-10-16] VITALS: Ht 175.3 cm; Wt 60.3 kg
[2018-10-16] VITALS (11 sets, daily range): BP systolic 128–154; BP diastolic 62–75
[~2018-10-16 07:11] MED LIST changes: -AMIO200T4 PO; -ASPI325T11 PO; -ATOR20TA58 PO; -OXYC5TAB4 PO; -REGADENOSON 0.4 MG/5 ML DISP.SYRIN. IV ONE
[2018-10-16] MEDS ORDERED: IODIXANOL 320 MG/ML 100 ML VIAL. ONE (07:28)
[2018-10-16] MEDS ORDERED: LIDOCAINE 1% PF 2 ML VIAL. ONE (07:28)
[2018-10-16 07:40] LABS: HEMATOCRIT 42.2 % (39.0-53.0); HEMOGLOBIN 13.9 g/dL (13.0-17.5); RED BLOOD COUNT 4.49 x10^6/uL (4.30-5.70); RED CELL DISTRIBUTION WIDTH 14.3 % (11.5-14.5); WHITE BLOOD COUNT 5.9 x10^3/uL (4.0-11.0)
[2018-10-16 07:48] LABS: CREATININE 0.8 mg/dL (0.7-1.3); GFR 96.1; POTASSIUM 4.1 mmol/L (3.5-5.1)
[2018-10-16 07:57] LABS: PROTHROMBIN TIME PATIENT 12.7 SEC (11.7-14.0)
[2018-10-16] MEDS ORDERED: HEPARIN for IV BOLUS 10,000 UNIT/10 ML VIAL. ONE (08:26)
[2018-10-16] MEDS ORDERED: VERAPAMIL 5 MG/2 ML VIAL. ONE (08:26)
[2018-10-16] MEDS ORDERED: MIDAZOLAM HCL/PF 2 MG/2 ML VIAL. ONE (08:26)
[2018-10-16] MEDS ORDERED: fentaNYL PF VIAL 100 MCG/2 ML VIAL ONE (08:26)
[2018-10-16] MEDS ORDERED: NITROGLYCERIN 200 MCG/2 ML SYRINGE FOR CATH/VASC LAB. ONE (08:27)
[2018-10-16] MEDS ORDERED: IODIXANOL 320 MG/ML 100 ML VIAL. IART ONE (08:45)
[2018-10-16] MEDS ORDERED: HEPARIN for IV BOLUS 10,000 UNIT/10 ML VIAL. IART ONE (08:45)
[2018-10-16] MEDS ORDERED: LIDOCAINE 1% PF 2 ML VIAL. INJ ONE (08:45)
[2018-10-16] MEDS ORDERED: NITROGLYCERIN 200 MCG/2 ML SYRINGE FOR CATH/VASC LAB. IART ONE (08:45)
[2018-10-16] MEDS ORDERED: MIDAZOLAM HCL/PF 2 MG/2 ML VIAL. IV ONE (08:45)
[2018-10-16] MEDS ORDERED: VERAPAMIL 5 MG/2 ML VIAL. IART ONE (08:45)
[2018-10-16] MEDS ORDERED: fentaNYL PF VIAL 100 MCG/2 ML VIAL IV ONE (08:45)
[2018-10-16] MEDS ORDERED: CONTRAST GIVEN. MC PRN (09:00)
--- NOTE | 2018-10-16 09:21 | CARD ---
MR#: [id number] Date of Study: 10/16/2018 Ordering Physician: ELAINA ALMAZAN, Referring Physician: ELAINA ALMAZAN Tech: RT Rose Marie (R) APPROVED REPORT Technologist: RT Rose Marie (R) Nurse: Nicolette Holbrook RN Procedure(s) performed: Left heart catheterization, selective coronary angiography and left ventricul ography via right transradial approach Fluoro time: 2.2 minutes Dose: 30 Gycm2 Contrast: 88cc Moderate sedation: 20 minutes INDICATION The indication(s) include : Cardiac arrhythmia, positive stress test. CSHA Clinical Frailty Scale CSHA Clinical Frailty Scale: Very Fit Heart Failure Heart Failure: No PROCEDURE NARRATIVE After explaining the risks, benefits and alternative options, informed consent was obtained from benja ent. Patient was brought to the cardiac County Manager and right wrist was prepped and draped in the usual fashion after confirming a positive modified Je's test. Arterial access was obtained in the [facility] t radial artery and a 6 Spanish sheath was inserted. 6 Spanish Salbador catheter was used to perform lyndsay ective angiography of the left and right coronary arteries. The same catheter was used to perform lef t ventriculography. Patient tolerated the procedure well. Hemostasis was achieved using TR band. T here were no immediate complications. The following findings were noted. FINDINGS 1. Hemodynamics: Left ventricular end-diastolic pressure of 8 mmHg. No pullback gradient across the aortic valve. 2. Left ventriculography: Posterobasal wall hypokinesis with ejection fraction estimated at 55%. No significant mitral regurgitation seen. 3. Coronary angiography: a. The left main coronary artery arose from the left sinus of Valsalva, gave rise to the left anteri or descending and left circumflex arteries and showed 70-80% midsegment stenosis. b. The left anterior descending artery showed 30% stenosis in the midsegment. c. The left circumflex artery did not show any significant stenosis. d. The right coronary artery was a large and dominant vessel arising from the right sinus of Valsalv a showed 99% stenosis in the proximal to midsegment followed by 100% chronic total occlusion in the m idsegment. There is distal reconstitution of posterior descending and posterolateral branches from le ft to right collaterals. Conclusion 1. Severe three-vessel coronary artery disease 2. Posterobasal wall hypokinesis with ejection fraction estimated at 55% Recommendations Cardiothoracic surgery consultation for possible coronary artery bypass surgery Signed by : Elaina Almazan, Electronically Approved : 10/16/2018 09:20:47
[2018-10-16] MEDS ORDERED: IV 1/2 NORMAL SALINE 1,000 ML IV SCH (09:22)
--- NOTE | 2018-10-16 09:22 | PDOC ---
MODERATE SEDATION ASSESSMENT RISKS/ALTERNATIVES Risks/Alternatives Risks and alternatives of this type of sedation and procedure discussed with: RISK/ALTERNATIVES: Patient H & P ON CHART H & P H & P on chart and reviewed for co-morbid conditions and appropriate labs. H&P ON CHART: Yes STATUS PREG STATUS ASSESSED: N/A MEDS/ALLERGIES REVIEWED Meds/Allergies Reviewed Medications and Allergies including time and route of recently administered narcotics and sedatives. MEDS/ALLERGIES REVIEWED: Yes ASA RATING ASA RATING: II AIRWAY ASSESSMENT Airway Assessment Airway patency, oral function limitations, presence of caps, crowns, dentures, partials, and ability to extend neck assessed. AIRWAY ASSESSMENT: Yes MALLAMPATI SCORE MALLAMPATI SCORE: II PRE-SEDATION ASSESSMENT PRE-SEDATION ASSESSMENT: Yes ELAINA ZAMARRIPA MD Oct 16, 2018 09:22
[2018-10-16] MEDS ORDERED: NITROGLYCERIN SUBLINGUAL 0.4 MG BOTTLE OF 25. SL PRN (09:30)
[2018-10-16] MEDS ORDERED: 0.9 % SODIUM CHLORIDE 10 ML DISP.SYRIN. IV PRN (09:30)
--- NOTE | 2018-10-16 12:25 | NUR ---
Discharge Note: Discharge instructions and discharge home medications reviewed with pt and spouse. A copy given to pt. All questions have been answered and understanding was verbalized. The following instructions and handouts were given on radial site care and post moderate sedation. Discontinued PIV. Armboard in place. Dr. Corrigan at pts bedside discussing CABG with pt and spouse. Patient discharged to home with self care accompanied by spouse.
--- NOTE | 2018-10-16 13:49 | PDOC2 ---
CONSULT Date of Consult Date of Consult DATE: 10/16/18 TIME: 13:42 Reason for Consult Reason for Consult: Severe three-vessel coronary artery disease Referring Physician Referring Physician: Dr Almazan Identification/Chief Complaint Chief Complaint Bradycardia Source Source: Chart review, Patient History of Present Illness Reason for Visit: The patient is a 68-year-old male who presented today for an elective coronary angiogram. He presented a month ago for elective eye surgery. At that time he was found to have significant bradycardia with heart rate of 30, with frequent PVCs, which were asymptomatic. A subsequent echo was normal but he went on to have an MPI which showed inferior wall ischemia with reversibility. He denies ever having angina, shortness of breath or history of PR. He is a smoker and has a family history of ischemic heart disease. He apparently has had a brief syncopal episode in the past. Coronary angiography today demonstrated a 70-80% mainstem disease, 90% proximal LAD stenosis, and an occluded RCA, which fills with from left to right collaterals. I was consulted to consider the patient for coronary surgical revascularization. Past Medical History Cardiovascular: Hyperlipidemia, Other Pulmonary: Other CENTRAL NERVOUS SYSTEM: Other GI: GERD Heme/Onc: No pertinent hx Hepatobiliary: No pertinent hx Psych: Anxiety Musculoskeletal: Osteoarthritis Rheumatologic: No pertinent hx Infectious disease: No pertinent hx Renal/: Prostate Ca. Endocrine: No pertinent hx Past Surgical History Past Surgical History: Cholecystectomy, Tonsillectomy, Other Social History ALCOHOL: none Drugs: None Lives: with Family Current Medications Current Medications Current Medications Iodixanol (Visipaque 320) 100 ml STK-MED ONCE .ROUTE ; Start 10/16/18 at 07:28; Stop 10/16/18 at 07:30; Status DC Lidocaine HCl (Xylocaine-Mpf 1% 2ml Vial) 2 ml STK-MED ONCE .ROUTE ; Start 10/16/18 at 07:28; Stop 10/16/18 at 07:30; Status DC Heparin Sodium/ Sodium Chloride 1,000 ml @ As Directed STK-MED ONCE .ROUTE ; Start 10/16/18 at 07:28; Stop 10/16/18 at 07:30; Status DC Fentanyl Citrate (Fentanyl 2ml Vial) 100 mcg STK-MED ONCE .ROUTE ; Start 10/16/18 at 08:26; Stop 10/16/18 at 08:27; Status DC Midazolam HCl (Versed) 2 mg STK-MED ONCE .ROUTE ; Start 10/16/18 at 08:26; Stop 10/16/18 at 08:27; Status DC Heparin Sodium (Porcine) (Heparin Sodium) 10,000 unit STK-MED ONCE .ROUTE ; Start 10/16/18 at 08:26; Stop 10/16/18 at 08:27; Status DC Verapamil HCl (Verapamil) 5 mg STK-MED ONCE .ROUTE ; Start 10/16/18 at 08:26; Stop 10/16/18 at 08:27; Status DC Nitroglycerin (Nitroglycerin) 200 mcg STK-MED ONCE .ROUTE ; Start 10/16/18 at 08:27; Stop 10/16/18 at 08:28; Status DC Nitroglycerin (Nitroglycerin) 200 mcg 1X ONCE IART Last administered on 10/16/18at 08:45; Start 10/16/18 at 08:45; Stop 10/16/18 at 08:49; Status DC Verapamil HCl (Verapamil) 2.5 mg 1X ONCE IART Last administered on 10/16/18at 08:45; Start 10/16/18 at 08:45; Stop 10/16/18 at 08:49; Status DC Heparin Sodium (Porcine) (Heparin Sodium) 2,500 unit 1X ONCE IART Last administered on 10/16/18at 08:45; Start 10/16/18 at 08:45; Stop 10/16/18 at 08:49; Status DC Heparin Sodium/ Sodium Chloride (HEPARIN for ARTERIAL LINE FLUSH) 1,000 unit 1X ONCE IART Last administered on 10/16/18at 08:45; Start 10/16/18 at 08:45; Stop 10/16/18 at 08:49; Status DC Midazolam HCl (Versed) 2 mg 1X ONCE IV Last administered on 10/16/18at 08:45; Start 10/16/18 at 08:45; Stop 10/16/18 at 08:49; Status DC Fentanyl Citrate (Fentanyl 2ml Vial) 100 mcg 1X ONCE IV Last administered on 10/16/18at 08:45; Start 10/16/18 at 08:45; Stop 10/16/18 at 08:49; Status DC Iodixanol (Visipaque 320) 100 ml 1X ONCE IART Last administered on 10/16/18at 08:45; Start 10/16/18 at 08:45; Stop 10/16/18 at 08:49; Status DC Lidocaine HCl (Xylocaine-Mpf 1% 2ml Vial) 2 ml 1X ONCE INJ Last administered on 10/16/18at 08:45; Start 10/16/18 at 08:45; Stop 10/16/18 at 08:49; Status DC Info (CONTRAST GIVEN -- Rx MONITORING) 1 each PRN DAILY PRN MC SEE COMMENTS; Start 10/16/18 at 09:00; Stop 10/16/18 at 12:47; Status DC Sodium Chloride (Normal Saline Flush) 3 ml QSHIFT PRN IV AFTER MEDS AND BLOOD DRAWS; Start 10/16/18 at 09:30; Stop 10/16/18 at 12:47; Status DC Sodium Chloride 1,000 ml @ 100 mls/hr Q10H IV ; Start 10/16/18 at 09:22; Stop 10/16/18 at 12:47; Status DC Nitroglycerin (Nitrostat) 0.4 mg PRN Q5MIN PRN SL CHEST PAIN; Start 10/16/18 at 09:30; Stop 10/16/18 at 12:47; Status DC Active Scripts Active Reported Xanax (Alprazolam) 1 Mg Tablet 1 Tab PO BID Protonix (Pantoprazole Sodium) 20 Mg Tablet.dr 40 Mg PO BIDAC Citalopram Hbr (Citalopram Hydrobromide) 20 Mg Tablet 1 Tab PO DAILY Oxybutynin Chloride Er (Oxybutynin Chloride) 10 Mg Tab.er.24 1 Tab PO DAILY Allergies Allergies: Coded Allergies: No Known Drug Allergies (Unverified , 09/21/13) ROS General: No: Chills, Night Sweats, Fatigue, Malaise, Appetite PSYCHOLOGICAL ROS: No: Anxiety, Behavioral Disorder, Concentration difficultie, Decreased libido, Depression, Disorientation, Hallucinations, Hostility, Irritablity, Memory difficulties, Mood Swings, Obsessive thoughts, Physical abuse, Sexual abuse, Sleep disturbances, Suicidal ideation Eyes: No Blurry vision, No Decreased vision, No Double vision, No Dry eyes, No Excessive tearing, No Eye Pain, No Itchy Eyes, No Loss of vision, No Photo phobia, No Scotomata, No Uses contacts, No Uses glasses HEENT: No: Heacaches, Visual Changes, Hearing change, Nasal congestion, Nasal discharge, Oral lesions, Sinus pain, Sore Throat, Epistaxis, Sneezing, Snoring, Tinnitus, Vertigo, Vocal changes ALLERGY AND IMMUNOLOGY: No: Hives, Insect Bite Sensitivity, Itchy/Watery Eyes, Nasal Congestion, Post Nasal Drip, Seasonal Allergies Hematological and Lymphatic: No: Bleeding Problems, Blood Clots, Blood Transfusions, Brusing, Night Sweats, Pallor, Swollen Lymph Nodes ENDOCRINE: No: Breast Changes, Galactorrhea, Hair Pattern Changes, Hot Flashes, Malaise/lethargy, Mood Swings, Palpitations, Polydipsia/polyuria, Skin Changes, Temperature Intolerance, Unexpected Weight Changes Respiratory: No: Cough, Hemoptysis, Orthopnea, Pleuritic Pain, Shortness of breath, SOB with excertion, Sputum Changes, Stridor, Tachypnea, Wheezing Cardiovascular: No Chest Pain, No Palpitations, No Orthopnea, No Paroxysmal Noc. Dyspnea, No Edema, No Lt Headedness Gastrointestinal: No Nausea, No Vomiting, No Abdominal Pain, No Diarrhea, No Constipation, No Melena, No Hematochezia Genitourinary: No Dysuria, No Frequency, No Incontinence, No Hematuria, No Retention, No Discharge, No Urgency, No Pain, No Flank Pain Musculoskeletal: No Gait Disturbance, No Joint Pain, No Joint Stiffness, No Joint Swelling, No Muscle Pain, No Muscular Weakness, No Pain In:, No Swelling In: Neurological: No Behavorial Changes, No Bowel/Bladder ControlChng, No Confusion, No Dizziness, No Gait Disturbance, No Headaches, No Impaired Coord/balance, No Memory Loss, No Numbness/Tingling, No Seizures, No Speech Problems, No Tremors, No Visual Changes, No Weakness Skin: No Dry Skin, No Eczema, No Hair Changes, No Lumps, No Mole Changes, No Mottling, No Nail Changes, No Pruritus, No Rash, No Skin Lesion Changes, No Acne Physical Exam General: Alert, Oriented X3, No acute distress HEENT: Atraumatic, PERRLA Lungs: Clear to auscultation Heart: Regular rate, Normal S1, Normal S2 Abdomen: Normal bowel sounds, Soft, No tenderness Extremities: No edema Skin: No significant lesion Neuro: Normal gait, Normal speech, Strength at 5/5 X4 ext, Normal tone, Sensation intact, Cranial nerves 3-12 NL, Reflexes 2+ Psych/Mental Status: Mental status NL MUSCULOSKELETAL: No deformity Vitals VITALS Vital Signs Date Time Temp Pulse Resp B/P (MAP) Pulse Ox O2 Delivery O2 Flow Rate FiO2 10/16/18 11:30 36 16 98 Room Air 10/16/18 09:01 2.0 10/16/18 07:44 98.2 128/62 (84) 98.2 Labs Labs Laboratory Tests Test 10/16/18 07:25 White Blood Count 5.9 x10^3/uL (4.0-11.0) Red Blood Count 4.49 x10^6/uL (4.30-5.70) Hemoglobin 13.9 g/dL (13.0-17.5) Hematocrit 42.2 % (39.0-53.0) Mean Corpuscular Volume 94 fL (79-100) Mean Corpuscular Hemoglobin 31 pg (25-35) Mean Corpuscular Hemoglobin Concent 33 g/dL (31-37) Red Cell Distribution Width 14.3 % (11.5-14.5) Platelet Count 181 x10^3/uL (140-400) Prothrombin Time 12.7 SEC (11.7-14.0) Prothromb Time International Ratio 1.0 (0.8-1.1) Sodium Level 137 mmol/L (136-145) Potassium Level 4.1 mmol/L (3.5-5.1) Chloride Level 102 mmol/L (98-107) Carbon Dioxide Level 32 mmol/L (21-32) Anion Gap 3 (6-14) Blood Urea Nitrogen 12 mg/dL (8-26) Creatinine 0.8 mg/dL (0.7-1.3) Estimated GFR (Cockcroft-Gault) 96.1 Glucose Level 82 mg/dL (70-99) Calcium Level 9.0 mg/dL (8.5-10.1) Laboratory Tests Test 10/16/18 07:25 White Blood Count 5.9 x10^3/uL (4.0-11.0) Red Blood Count 4.49 x10^6/uL (4.30-5.70) Hemoglobin 13.9 g/dL (13.0-17.5) Hematocrit 42.2 % (39.0-53.0) Mean Corpuscular Volume 94 fL (79-100) Mean Corpuscular Hemoglobin 31 pg (25-35) Mean Corpuscular Hemoglobin Concent 33 g/dL (31-37) Red Cell Distribution Width 14.3 % (11.5-14.5) Platelet Count 181 x10^3/uL (140-400) Prothrombin Time 12.7 SEC (11.7-14.0) Prothromb Time International Ratio 1.0 (0.8-1.1) Sodium Level 137 mmol/L (136-145) Potassium Level 4.1 mmol/L (3.5-5.1) Chloride Level 102 mmol/L (98-107) Carbon Dioxide Level 32 mmol/L (21-32) Anion Gap 3 (6-14) Blood Urea Nitrogen 12 mg/dL (8-26) Creatinine 0.8 mg/dL (0.7-1.3) Estimated GFR (Cockcroft-Gault) 96.1 Glucose Level 82 mg/dL (70-99) Calcium Level 9.0 mg/dL (8.5-10.1) Images Images FINDINGS 1. Hemodynamics: Left ventricular end-diastolic pressure of 8 mmHg. No pullback gradient across the aortic valve. 2. Left ventriculography: Posterobasal wall hypokinesis with ejection fraction estimated at 55%. No significant mitral regurgitation seen. 3. Coronary angiography: a. The left main coronary artery arose from the left sinus of Valsalva, gave rise to the left anterior descending and left circumflex arteries and showed 70- 80% midsegment stenosis. b. The left anterior descending artery showed 30% stenosis in the midsegment. c. The left circumflex artery did not show any significant stenosis. d. The right coronary artery was a large and dominant vessel arising from the right sinus of Valsalva showed 99% stenosis in the proximal to midsegment followed by 100% chronic total occlusion in the midsegment. There is distal reconstitution of posterior descending and posterolateral branches from left to right collaterals. Assessment/Plan Assessment/Plan 68-year-old male who presented today for an elective coronary angiogram. He presented a month ago for elective eye surgery. At that time he was found to have significant bradycardia with heart rate of 30, with frequent PVCs, which were asymptomatic. A subsequent echo was normal but he went on to have an MPI which showed inferior wall ischemia with reversibility. He denies ever having angina, shortness of breath or history of PR. He is a smoker and has a family history of ischemic heart disease. He apparently has had a brief syncopal episode in the past. Coronary angiography today demonstrated a 70-80% mainstem disease, 90% proximal LAD stenosis, and an occluded RCA, which fills with from left to right collaterals. I was consulted to consider the patient for coronary surgical revascularization. The patient is a good candidate for CABG The risks which include but are not limited to mortality 1-2%, stroke 1-2%, renal failure requiring dialysis 1-2%, reexploration for hemorrhage 5%, infection 5%, ventilator dependence 5%, arrhythmias and need for pacemaker of 30-40%, were explained to the patient who agrees to proceed. Plan for an elective CABG 3 on Saturday, October 27, 2018 In the interim will obtain a carotid duplex, noncontrast CT of the chest, bilateral lower extremity vein mapping and lab work NITO MILLIGAN MD Oct 16, 2018 13:48
[2018-11-02] MEDS ORDERED: ATOR20TA58 PO (12:14)
[2018-11-02] MEDS ORDERED: AMIO200T4 PO (12:14)
[2018-11-02] MEDS ORDERED: OXYC5TAB4 PO (12:14)
[2018-11-02] MEDS ORDERED: ASPI325T11 PO (12:14)
== END 2018-10-16 12:45 | disposition home or self-care (01) ==
LOC: CCL 07:11
PROVIDERS: ATTEND Internal Medicine Cardiovascular Disease
DX: I25.10 Atherosclerotic heart disease of native coronary artery without angina pectoris (principal); E78.5 Hyperlipidemia, unspecified; K21.9 Gastro-esophageal reflux disease without esophagitis; F41.9 Anxiety disorder, unspecified; I71.4 Abdominal aortic aneurysm, without rupture; I49.3 Ventricular premature depolarization; Z85.46 Personal history of malignant neoplasm of prostate; M19.90 Unspecified osteoarthritis, unspecified site; Z90.49 Acquired absence of other specified parts of digestive tract; Z98.890 Other specified postprocedural states; Z79.899 Other long term (current) drug therapy; Z79.82 Long term (current) use of aspirin; Z79.01 Long term (current) use of anticoagulants
CPT/HCPCS: 36415; 80048; 85027; 85610; 93458; 99152; C1769; C1892; J1644; J2250; J3010; J3490; Q9967

== ENCOUNTER → 2018-10-23 | Outpatient (CLI) | payer MEDICARE ==
[2018-10-16 11:30] VITALS: BP 145/73
[~2018-10-23] MED LIST changes: +AMIO200T4 PO; +ASPI325T11 PO; +ATOR20TA58 PO; +OXYC5TAB4 PO
--- NOTE | 2018-10-23 10:35 | RAD ---
CT of the chest without contrast 10/23/2018 INDICATION: Preoperative COMPARISON STUDY: CT of the chest without contrast May 24, 2016. CT of the abdomen and pelvis the uterus September 23, 2014. TECHNIQUE: Multidetector CT imaging of the chest was performed without the administration of contrast FINDINGS: Heart size is normal. No pericardial effusion is identified. Dense coronary calcification is seen throughout. There is also diffuse atherosclerotic vascular disease. Mild atheromatous calcification involving the proximal ascending aorta is seen with small area of calcification including involvement of the sinotubular junction and proximal most ascending aorta. Ectasia of the ascending thoracic aorta up to 3.9 cm is noted. Calcification within the aortic arch is seen. Descending thoracic aorta is also calcified. There is a partially visualized infrarenal abdominal aortic aneurysm measuring up to 5 cm in diameter. Calcification of mesenteric vessels noted. Scattered small mediastinal lymph nodes are noted without pathologically enlarged adenopathy. Central airways are grossly patent. No pneumothorax or pleural effusion is identified. There is a minimally spiculated 5 mm nodule in the right upper lobe (axial image 7 coronal image 33). CT surveillance recommended. There is a noncalcified nodule in the right upper lobe measuring 3 mm in diameter (axial image 19, coronal image 35). There is a nodule along the minor fissure measuring 5 mm in diameter (axial image 37). There is a second nodule along the more anterior fissure measuring 4 mm in diameter (axial image 41). No acute osseous changes are identified. Degenerative changes of the thoracic spine noted. Mild S-shaped curvature of the thoracolumbar spine is seen. IMPRESSION: 1. Dense coronary artery calcification 2. Mild calcification involving the ascending thoracic aorta as described 3. Infrarenal abdominal aortic aneurysm, partially visualized measuring at least 5 cm in diameter. Visualized portions of the aneurysm appear mildly increased since 2014. Follow-up CT angiography recommended. 4. Multiple subcentimeter pulmonary nodules. Six-month follow-up CT recommended for surveillance. Pulmonary Nodule Followup: Fleischner Society recommendations (Radiology 2005; 237; 395-400): In a low risk patient: 4mm or less - No follow up required. >4-6mm- 12 month follow up, if unchanged, no further follow up. >6-8mm- 6-12 month follow up, then at 18-24 months if no change. >8mm- 3, 9, 24 month follow up or consideration of PET/CT. In a high risk patient: <4mm - 12 month follow up, if unchanged then no further follow up. >4-6mm- 6-12 month follow up, then at 18-24 months if no change. >6-8mm- 3-6 month follow up, then at 9-12 months and 24 months if no change Electronically signed by: Andrew Vaughan MD (10/23/2018 10:32 AM) [facility]
--- NOTE | 2018-10-23 11:54 | RAD ---
EXAM: Carotid Doppler sonogram. HISTORY: Coronary artery disease. Preoperative evaluation. TECHNIQUE: Up scale and color Doppler sonographic evaluation of the neck with spectral waveform analysis was performed and static images are submitted for review. FINDINGS: There is moderate atherosclerotic plaque throughout the common carotid arteries, carotid bulbs and proximal internal and external carotid arteries. The peak systolic velocity within the right common carotid artery is 76 cm/sec. The peak systolic velocity within the right internal carotid artery is 213 cm/sec and the end diastolic velocity within the right internal carotid artery is 46 cm/sec. The right ICA/CCA ratio is 2.8. The peak systolic velocity within the left common carotid artery is 93 cm/sec. The peak systolic velocity within the left internal carotid artery is 114 cm/sec and the end diastolic velocity within the left internal carotid artery is 37 cm/sec. The left ICA/CCA ratio is 1.22. There is normal antegrade flow within both vertebral arteries. IMPRESSION: 1. Elevated peak systolic velocity and end-diastolic velocity within the right ICA and elevated right ICA to CCA ratio, suggesting 50-69% stenosis. 2. No Doppler evidence of greater than 50% stenosis involving the left ICA. 3. Moderate atherosclerotic plaque throughout the carotid bifurcations. PQRS Compliance Statement - Stenosis calculations for CT, MR and conventional angiography are based upon measurement of the distal ICA diameter in accordance with the NASCET methodology. Stenosis calculations for carotid ultrasound studies are derived from validated velocity criteria which are known to correlate with the NASCET methodology. Electronically signed by: Cait Dowd MD (10/23/2018 11:51 AM) [facility]
[2018-10-23 12:53] LABS: BASO % 1 % (0-3); EOS # 0.2 x10^3/uL (0.0-0.7); EOS % 3 % (0-3); HEMOGLOBIN 13.3 g/dL (13.0-17.5); LYMPH # 1.5 x10^3/uL (1.0-4.8); LYMPH % 29 % (24-48); MEAN CORPUSCULAR HEMOGLOBIN 31 pg (25-35); MEAN CORPUSCULAR HGB CONC 33 g/dL (31-37); MEAN CORPUSCULAR VOLUME 94 fL (79-100); MONO # 0.7 x10^3/uL (0.0-1.1); MONO % 13 % (0-9); NEUT # 2.9 x10^3uL (1.8-7.7); NEUT % 54 % (31-73); PLATELET COUNT 192 x10^3/uL (140-400); RED BLOOD COUNT 4.27 x10^6/uL (4.30-5.70); RED CELL DISTRIBUTION WIDTH 13.9 % (11.5-14.5); WHITE BLOOD COUNT 5.3 x10^3/uL (4.0-11.0)
--- NOTE | 2018-10-23 13:02 | RAD ---
Bilateral lower extremity vein mapping, 10/23/2018: HISTORY: Preop evaluation for CABG Duplex evaluation of the saphenous veins in both lower extremities was performed including grayscale and color flow imaging. The right greater saphenous vein is patent measuring 3.5 to 5.8 mm in the thigh and 2.8 to 3.6 mm in the lower leg. The right lesser saphenous vein is patent measuring 1.4 to 3.9 mm. On the left, the greater saphenous vein is patent in the thigh measuring 2.8 to 4.6 mm. In the left lower leg it is patent measuring 2.0 to 4.6 mm. The left lesser saphenous vein is patent measuring 2.2 to 2.8 mm. IMPRESSION: Patent greater saphenous and lesser saphenous veins in both lower extremities with measurements as described above and fully delineated on the technologist worksheet available in the [employer] system. Electronically signed by: Milton Steen MD (10/23/2018 12:59 PM) [facility]
[2018-10-23 13:03] LABS: PROTHROMBIN TIME PATIENT 12.9 SEC (11.7-14.0)
[2018-10-23 13:07] LABS: ALBUMIN 3.8 g/dL (3.4-5.0); ALBUMIN/GLOBULIN RATIO 1.1 (1.0-1.7); CALCIUM 8.9 mg/dL (8.5-10.1); CREATININE 0.8 mg/dL (0.7-1.3); GFR 96.1; POTASSIUM 4.4 mmol/L (3.5-5.1); TOTAL BILIRUBIN 0.5 mg/dL (0.2-1.0); TOTAL PROTEIN 7.2 g/dL (6.4-8.2)
[2018-10-24 03:15] LABS: HEMOGLOBIN A1C 5.2 % (4.8-5.6)
== END | disposition home or self-care (01) ==
LOC: US 08:13
PROVIDERS: ATTEND Thoracic Surgery (Cardiothoracic Vascular Surgery)
DX: Z01.818 Encounter for other preprocedural examination (principal); I25.10 Atherosclerotic heart disease of native coronary artery without angina pectoris; I65.23 Occlusion and stenosis of bilateral carotid arteries; I70.0 Atherosclerosis of aorta; I77.810 Thoracic aortic ectasia; J98.59 Other diseases of mediastinum, not elsewhere classified; R91.8 Other nonspecific abnormal finding of lung field; Z95.1 Presence of aortocoronary bypass graft
CPT/HCPCS: 36415; 71250; 80053; 83036; 85025; 85610; 85730; 87641; 93880; 93970

== ENCOUNTER → 2018-11-20 | Outpatient (CLI) | payer MEDICARE ==
[2018-11-02 14:42] VITALS: BP 116/57
--- NOTE | 2018-11-20 15:47 | RAD ---
Chest, 2 views, 11/20/2018: HISTORY: Postop evaluation, coronary artery surgery Comparison is made to a study from 11/02/2018. Sternal wires are in place. The heart size and pulmonary vascularity are normal. There is calcific plaquing of the aorta. No pulmonary infiltrate is seen. There is blunting of the posterior costophrenic angles compatible with a tiny amount of pleural fluid. There is no evidence of pneumothorax. IMPRESSION: 1. Tiny bilateral pleural effusions. 2. No acute infiltrates. Electronically signed by: Milton Steen MD (11/20/2018 3:44 PM) [facility]
== END | disposition home or self-care (01) ==
LOC: RAD 12:53
PROVIDERS: ATTEND Thoracic Surgery (Cardiothoracic Vascular Surgery)
DX: J90 Pleural effusion, not elsewhere classified (principal); Z95.1 Presence of aortocoronary bypass graft
CPT/HCPCS: 71046

== ENCOUNTER 2019-02-02 02:29 | Emergency (ER) | payer MEDICARE ==
[~2019-02-02] VITALS: Ht 172.7 cm; Wt 59.9 kg
[2019-02-02] MEDS ORDERED: IV NORMAL SALINE 1000ML BAG 1,000 ML IV SCH (03:00)
[2019-02-02] MEDS ORDERED: KETOROLAC 30 MG/ML VIAL. IV ONE (03:00)
[2019-02-02 03:17] LABS: BASO % 0 % (0-3); EOS % 0 % (0-3); HEMATOCRIT 40.2 % (39.0-53.0); HEMOGLOBIN 13.3 g/dL (13.0-17.5); LYMPH # 0.7 x10^3/uL (1.0-4.8); LYMPH % 9 % (24-48); MEAN CORPUSCULAR HEMOGLOBIN 29 pg (25-35); MEAN CORPUSCULAR HGB CONC 33 g/dL (31-37); MEAN CORPUSCULAR VOLUME 86 fL (79-100); MONO # 0.5 x10^3/uL (0.0-1.1); MONO % 6 % (0-9); NEUT # 7.1 x10^3/uL (1.8-7.7); NEUT % 85 % (31-73); PLATELET COUNT 199 x10^3/uL (140-400); RED BLOOD COUNT 4.66 x10^6/uL (4.30-5.70); RED CELL DISTRIBUTION WIDTH 15.2 % (11.5-14.5); WHITE BLOOD COUNT 8.5 x10^3/uL (4.0-11.0)
[2019-02-02 03:19] LABS: BILIRUBIN,URINE NEGATIVE (NEG); CLARITY,URINE CLOUDY; COLOR,URINE YELLOW; NITRITE,URINE NEGATIVE (NEG); PH,URINE 7.5; PROTEIN,URINE NEGATIVE (NEG-TRACE); UROBILINOGEN,URINE 0.2 mg/dL (0.2 mg/dL)
[2019-02-02 03:24] LABS: BACTERIA,URINE 0 /HPF (0-FEW); RBC,URINE OCC /HPF (0-2); SQUAMOUS EPITHELIAL CELL,UR OCC /LPF; WBC,URINE 0 /HPF (0-4)
[2019-02-02 03:30] LABS: CREATININE 0.7 mg/dL (0.7-1.3); GFR 112.1; POTASSIUM 3.7 mmol/L (3.5-5.1)
[2019-02-02 03:37] LABS: ALBUMIN/GLOBULIN RATIO 1.1 (1.0-1.7); TOTAL BILIRUBIN 0.3 mg/dL (0.2-1.0); TOTAL PROTEIN 7.5 g/dL (6.4-8.2)
--- NOTE | 2019-02-02 03:54 | PHYS DOC ---
Past Medical History Past Medical History: Anxiety, CAD, Depression, GERD, High Cholesterol, Hypertension, Other Additional Past Medical Histor: PROSTATE CA, SLEEP APNEA Past Surgical History: Other Additional Past Surgical Histo: PROSTECTOMY D/T CA, Alcohol Use: Heavy Drug Use: None Adult General Chief Complaint Chief Complaint: ABDOMINAL PAIN HPI HPI Patient is a 68 year old male who presents with complaining of abdominal pain. Patient complaining of gradual onset of left-sided and lower abdominal pain since yesterday as a constant pain without radiation. Patient denies diarrhea and constipation, urinary symptoms, fever and chills, chest pain and shortness of breath, nausea and vomiting, history of the same pain. Review of Systems Review of Systems Constitutional: Denies fever or chills [] Eyes: Denies change in visual acuity, redness, or eye pain [] HENT: Denies nasal congestion or sore throat [] Respiratory: Denies cough or shortness of breath [] Cardiovascular: No additional information not addressed in HPI [] GI: Denies abdominal pain, nausea, vomiting, bloody stools or diarrhea [] : Denies dysuria or hematuria [] Musculoskeletal: Denies back pain or joint pain [] Integument: Denies rash or skin lesions [] Neurologic: Denies headache, focal weakness or sensory changes [] Endocrine: Denies polyuria or polydipsia [] All other systems were reviewed and found to be within normal limits, except as documented in this note. Current Medications Current Medications Current Medications Medications (Trade) Dose Ordered Sig/Sandra Start Time Stop Time Status Last Admin Dose Admin Fentanyl Citrate (Fentanyl 2ml Vial) 50 mcg 1X ONCE 02/02/19 04:45 02/02/19 04:46 DC 02/02/19 04:47 50 MCG Ketorolac Tromethamine (Toradol 30mg Vial) 30 mg 1X ONCE 02/02/19 03:00 02/02/19 03:01 DC 02/02/19 03:17 30 MG Sodium Chloride 1,000 ml @ 1,000 mls/hr Q1H 02/02/19 03:00 02/02/19 03:59 DC 02/02/19 03:29 1,000 MLS/HR Allergies Allergies Allergies Coded Allergies Type Severity Reaction Last Updated Verified No Known Drug Allergies 10/27/18 No Physical Exam Physical Exam Constitutional: Well developed, well nourished, moderate distress, non-toxic appearance. [] HENT: Normocephalic, atraumatic, , oropharynx moist. Eyes: PERRLA, EOMI, conjunctiva normal, no discharge. [] Neck: Normal range of motion, no tenderness, supple, no stridor. [] Cardiovascular:Heart rate regular rhythm, no murmur [] Lungs & Thorax: Bilateral breath sounds clear to auscultation [] Abdomen: Bowel sounds normal, soft, no tenderness, no masses, no pulsatile masses. [] Skin: Warm, dry, no erythema, no rash. [] Back: No tenderness, no CVA tenderness. [] Extremities: No tenderness, no cyanosis, no clubbing, ROM intact, no edema, bilateral and equal peripheral pulses. [] Neurologic: Alert and oriented X 3, normal motor function, normal sensory function, no focal deficits noted. [] Psychologic: Affect normal, judgement normal, mood normal. [] Current Patient Data Vital Signs Vital Signs Date Time Temp Pulse Resp B/P (MAP) Pulse Ox O2 Delivery O2 Flow Rate FiO2 02/02/19 05:47 76 17 166/85 (112) 94 Room Air 02/02/19 02:30 97.6 97.6 Lab Values Laboratory Tests Test 02/02/19 02:45 02/02/19 03:10 Urine Collection Type Unknown Urine Color Yellow Urine Clarity Cloudy Urine pH 7.5 Urine Specific [place] 1.015 Urine Protein Negative mg/dL (NEG-TRACE) Urine Glucose (UA) Negative mg/dL (NEG) Urine Ketones (Stick) 15 mg/dL (NEG) Urine Blood Negative (NEG) Urine Nitrite Negative (NEG) Urine Bilirubin Negative (NEG) Urine Urobilinogen Dipstick 0.2 mg/dL (0.2 mg/dL) Urine Leukocyte Esterase Negative (NEG) Urine RBC Occ /HPF (0-2) Urine WBC 0 /HPF (0-4) Urine Squamous Epithelial Cells Occ /LPF Urine Bacteria 0 /HPF (0-FEW) Urine Mucus Mod /LPF White Blood Count 8.5 x10^3/uL (4.0-11.0) Red Blood Count 4.66 x10^6/uL (4.30-5.70) Hemoglobin 13.3 g/dL (13.0-17.5) Hematocrit 40.2 % (39.0-53.0) Mean Corpuscular Volume 86 fL (79-100) Mean Corpuscular Hemoglobin 29 pg (25-35) Mean Corpuscular Hemoglobin Concent 33 g/dL (31-37) Red Cell Distribution Width 15.2 % (11.5-14.5) H Platelet Count 199 x10^3/uL (140-400) Neutrophils (%) (Auto) 85 % (31-73) H Lymphocytes (%) (Auto) 9 % (24-48) L Monocytes (%) (Auto) 6 % (0-9) Eosinophils (%) (Auto) 0 % (0-3) Basophils (%) (Auto) 0 % (0-3) Neutrophils # (Auto) 7.1 x10^3/uL (1.8-7.7) Lymphocytes # (Auto) 0.7 x10^3/uL (1.0-4.8) L Monocytes # (Auto) 0.5 x10^3/uL (0.0-1.1) Eosinophils # (Auto) 0.0 x10^3/uL (0.0-0.7) Basophils # (Auto) 0.0 x10^3/uL (0.0-0.2) Sodium Level 139 mmol/L (136-145) Potassium Level 3.7 mmol/L (3.5-5.1) Chloride Level 100 mmol/L (98-107) Carbon Dioxide Level 30 mmol/L (21-32) Anion Gap 9 (6-14) Blood Urea Nitrogen 12 mg/dL (8-26) Creatinine 0.7 mg/dL (0.7-1.3) Estimated GFR (Cockcroft-Gault) 112.1 BUN/Creatinine Ratio 17 (6-20) Glucose Level 118 mg/dL (70-99) H Calcium Level 9.0 mg/dL (8.5-10.1) Total Bilirubin 0.3 mg/dL (0.2-1.0) Aspartate Amino Transferase (AST) 22 U/L (15-37) Alanine Aminotransferase (ALT) 27 U/L (16-63) Alkaline Phosphatase 104 U/L (46-116) Troponin I Quantitative 0.045 ng/mL (0.000-0.055) Total Protein 7.5 g/dL (6.4-8.2) Albumin 4.0 g/dL (3.4-5.0) Albumin/Globulin Ratio 1.1 (1.0-1.7) Lipase 81 U/L (73-393) Laboratory Tests 02/02/19 03:10 Laboratory Tests 02/02/19 03:10 EKG EKG [] Radiology/Procedures Radiology/Procedures [][facility] [address] [place] [address] IMAGING REPORT Signed PATIENT: CALLUM MORAN ACCOUNT: [id number] : 1950 LOCATION: ER AGE: 68 SEX: M EXAM STATUS: REG ER ORD. PHYSICIAN: BOLA RAUSCH MD REASON: abdominal pain PROCEDURE: CT ABDOMEN PELVIS WO CONTRAST CT abdomen pelvis without contrast dated 02/02/2019. Comparison made to 09/23/2014. CLINICAL INDICATION: Abdominal pain. TECHNIQUE: Contiguous axial imaging the abdomen and pelvis performed without the administration of IV or oral contrast. One or more of the following individualized dose reduction techniques were utilized for this examination: 1. Automated exposure control 2. Adjustment of the mA and/or kV according to patient size 3. Use of iterative reconstruction technique FINDINGS: Limited images of lung bases are clear. Heart size within normal limits. No pleural or pericardial effusion. Dense coronary calcifications with evidence of prior median sternotomy. Solid abdominal viscera not well evaluated in the absence of contrast material. No apparent attenuation abnormality of the liver or spleen. The gallbladder is surgically absent. There is mild prominence of the common bile duct measuring up to 10 mm diameter, somewhat more prominent from prior exam where it measured 5 mm. No intraductal filling defect. Pancreas, adrenal glands and kidneys are unremarkable. No stone or hydronephrosis. Infrarenal abdominal aortic aneurysm measuring up to 5.1 cm transverse versus 4.6 cm previously. No periaortic fluid collection. Unopacified GI tract normal in caliber and contour. No focal bowel wall thickening. No inflammatory stranding in the mesentery. No ascites or lymphadenopathy. Images of pelvis show mildly distended urinary bladder. Small amount of free pelvic fluid. No pelvic lymphadenopathy. Prostate gland normal in size. Bone windows show no acute findings. Mild multilevel spondylosis. IMPRESSION: 1. Infrarenal abdominal aortic aneurysm has increased in size from the 2015 exam. No evidence of leak. 2. Mild prominence of the extra hepatic biliary tree with no discrete filling defect or intrahepatic ductal dilatation. The distal stricture cannot be excluded. Correlate with laboratory results. 3. Small amount of free pelvic fluid, nonspecific. Electronically signed by: Luc Graff MD (02/02/2019 3:58 AM) [facility] DICTATED and SIGNED BY: LUC GRAFF MD DATE: 02/02/19 0358 Course & Med Decision Making Course & Med Decision Making Pertinent Labs and Imaging studies reviewed. (See chart for details) Evaluation of patient in ER showed 68-year-old male patient with complaining of left lower quadrant pain. Patient treated with IV fluid and pain medication and felt better. CT of abdomen and pelvis did not show acute finding except for mild increase of size of chronic aortic aneurysm to 5.1 cm without itching. Patient had bilateral pulses without palpebral abdominal mass. 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 Patient was advised to follow-up with Dr. Castellon on-call vascular surgeon increasing size of aortic aneurysm. I've spoken with the patient and/or caregivers. I've explained the patient's condition, diagnosis and treatment plan based on information available to me at this time. I've answered the patient's and/or caregivers questions and addressed any concerns. The patient and/or caregivers have a good understanding the patient's diagnosis, condition and treatment plan as can be expected at this point. Vital signs have been stabilized. The patient's condition is stable for discharge from the emergency department. The patient will pursue further outpatient evaluation with her primary care provider or other designated consulting physician as outlined in the discharge instructions. Patient and/or caregivers are agreeable to this plan of care and follow-up instructions have been explained in detail. The patient and/or caregivers have received these instructions in written format and expressed understanding of these discharge instructions. The patient and her caregivers are aware that if any significant change in condition or worsening of symptoms should prompt him to immediately return to this of the closest emergency department. If an emergent department is not readily available I would enco urage him to call 911. tOto Disclaimer Otto Disclaimer This electronic medical record was generated, in whole or in part, using a voice recognition dictation system. Departure Departure Impression: Primary Impression: Abdominal pain Additional Impression: Aortic aneurysm Disposition: HOME, SELF-CARE (at 0600) Condition: IMPROVED Referrals: [facility] (PCP) CYRIL CASTELLON MD Patient Instructions: Abdominal Aortic Aneurysm, Abdominal Pain Additional Instructions: Follow-up with vascular surgeon in one or 2 days Follow-up with your primary care physician in 3-5 days Return to ER if not getting better Scripts Hydrocodone/Apap 5-325 (NORCO 5-325 TABLET) 1 Each Tablet 1 TAB PO PRN Q6HRS PRN for PAIN, #10 TAB 0 Refills Prov: BOLA RAUSCH MD 02/02/19 Problem Qualifiers Primary Impression: Abdominal pain Abdominal location: lower abdomen, unspecified Qualified Codes: R10.30 - Lower abdominal pain, unspecified Additional Impression: Aortic aneurysm Aortic location: abdominal aorta Presence of rupture: without rupture Qualified Codes: I71.4 - Abdominal aortic aneurysm, without rupture BOLA RAUSCH MD Feb 02, 2019 03:54
--- NOTE | 2019-02-02 04:00 | RAD ---
CT abdomen pelvis without contrast dated 02/02/2019. Comparison made to 09/23/2014. CLINICAL INDICATION: Abdominal pain. TECHNIQUE: Contiguous axial imaging the abdomen and pelvis performed without the administration of IV or oral contrast. One or more of the following individualized dose reduction techniques were utilized for this examination: 1. Automated exposure control 2. Adjustment of the mA and/or kV according to patient size 3. Use of iterative reconstruction technique FINDINGS: Limited images of lung bases are clear. Heart size within normal limits. No pleural or pericardial effusion. Dense coronary calcifications with evidence of prior median sternotomy. Solid abdominal viscera not well evaluated in the absence of contrast material. No apparent attenuation abnormality of the liver or spleen. The gallbladder is surgically absent. There is mild prominence of the common bile duct measuring up to 10 mm diameter, somewhat more prominent from prior exam where it measured 5 mm. No intraductal filling defect. Pancreas, adrenal glands and kidneys are unremarkable. No stone or hydronephrosis. Infrarenal abdominal aortic aneurysm measuring up to 5.1 cm transverse versus 4.6 cm previously. No periaortic fluid collection. Unopacified GI tract normal in caliber and contour. No focal bowel wall thickening. No inflammatory stranding in the mesentery. No ascites or lymphadenopathy. Images of pelvis show mildly distended urinary bladder. Small amount of free pelvic fluid. No pelvic lymphadenopathy. Prostate gland normal in size. Bone windows show no acute findings. Mild multilevel spondylosis. IMPRESSION: 1. Infrarenal abdominal aortic aneurysm has increased in size from the 2015 exam. No evidence of leak. 2. Mild prominence of the extra hepatic biliary tree with no discrete filling defect or intrahepatic ductal dilatation. The distal stricture cannot be excluded. Correlate with laboratory results. 3. Small amount of free pelvic fluid, nonspecific. Electronically signed by: Luc Graff MD (02/02/2019 3:58 AM) [facility]
[2019-02-02] MEDS ORDERED: fentaNYL PF VIAL 100 MCG/2 ML VIAL IV ONE (04:45)
[2019-02-02 05:47] VITALS: BP 166/85
[2019-02-02] MEDS ORDERED: HYDR-3164 PO (06:01)
== END 2019-02-02 06:15 | disposition home or self-care (01) ==
LOC: ER 02:29
DX: I71.4 Abdominal aortic aneurysm, without rupture (principal); R10.32 Left lower quadrant pain; F41.9 Anxiety disorder, unspecified; I25.10 Atherosclerotic heart disease of native coronary artery without angina pectoris; F32.9 Major depressive disorder, single episode, unspecified; K21.9 Gastro-esophageal reflux disease without esophagitis; E78.00 Pure hypercholesterolemia, unspecified; I10 Essential (primary) hypertension; F10.20 Alcohol dependence, uncomplicated; Y90.9 Presence of alcohol in blood, level not specified
CPT/HCPCS: 36415; 74176; 80053; 81001; 83690; 84484; 85025; 96374; 96375; 99285; J1885; J3010; J7030

== ENCOUNTER → 2020-05-29 | Outpatient (CLI) | payer MEDICARE ==
[~2020-05-29] MED LIST changes: -AMIO200T4 PO; +AMIO200T6 PO; -ASPI-612 PO; +ASPI-886 PO; +HYDR-3164 PO; -OXYB10TA PO; +OXYB10TA26 PO; +SIMV20TA18 PO; -SIMV20TA3 PO
--- NOTE | 2020-05-30 12:14 | CARD ---
MR#: [id number] Date of Study: 05/29/2020 Ordering Physician: ELAINA ALMAZAN, Referring Physician: ELAINA ALMAZAN, Tech: Ni Mast APPROVED REPORT EXAM: Two-dimensional and M-mode echocardiogram with Doppler and color Doppler. Other Information Quality : AverageHR: 56bpm INDICATION Cardiac Disease: CAD Surgery/Intervention CABG: Date: 2017 Site: [facility] RISK FACTORS Hyperlipidemia 2D DIMENSIONS RVDd3.5 (2.9-3.5cm)Left Atrium(2D)3.2 (1.6-4.0cm) IVSd1.2 (0.7-1.1cm)Aortic Root(2D)3.5 (2.0-3.7cm) LVDd5.0 (3.9-5.9cm)LVOT Diameter2.0 (1.8-2.4cm) PWd1.1 (0.7-1.1cm)LVDs3.5 (2.5-4.0cm) LVEF(%)60.0 (>50%) Aortic Valve AoV Peak Jay.124.3cm/sAoV VTI21.5cm AO Peak GR.6.2mmHgLVOT Peak Jay.97.8cm/s LVOT VTI 18.98cmAO Mean GR.3mmHg Mitral Valve MV E Ebhbtihy08.4cm/sMV DECEL FEYZ537or MV A Ldhyuedv14.3cm/sMV E Mean Gr.1mmHg MV [id number]/A Ratio1.0 MVA (PHT)3.18cm2 TDI E/Lateral E'5.3E/Medial E'5.6 Pulmonary Valve PV Peak Psexdzij81.3cm/sPV Peak Grad.3mmHg Tricuspid Valve TR P. Yqlkjwkv783ub/sTR Peak Gr.20mmHg Pulmonary Vein S1 Mjczejmv76.8cm/sD2 Ocozecbu99.5cm/s PVa [id number] LEFT VENTRICLE The left ventricle is normal size. There is mild concentric left ventricular hypertrophy. The left ve ntricular systolic function is normal. The Ejection Fraction is 55-60%. There is normal LV segmental wall motion. The left ventricular diastolic function and filling is normal for age. RIGHT VENTRICLE The right ventricle is normal size. There is normal right ventricular wall thickness. The right ventr icular systolic function is normal. ATRIA The left atrium size is normal. The right atrium size is normal. The interatrial septum is intact wit h no evidence for an atrial septal defect or patent foramen ovale as noted on 2-D or Doppler imaging. AORTIC VALVE The aortic valve is not well visualized. Doppler and Color Flow revealed trace aortic regurgitation. There is no significant aortic valvular stenosis. MITRAL VALVE The mitral valve is normal in structure and function. There is no evidence of mitral valve prolapse. There is no mitral valve stenosis. Doppler and Color Flow revealed no mitral valve regurgitation note d. TRICUSPID VALVE The tricuspid valve is normal in structure and function. Doppler and Color Flow revealed trace tricus pid regurgitation with an estimated PAP of 26 mmHg. There is no tricuspid valve stenosis. PULMONIC VALVE The pulmonic valve is not well visualized. Doppler and Color Flow revealed trace pulmonic valvular re gurgitation. GREAT VESSELS The aortic root is normal in size. The IVC is normal in size and collapses >50% with inspiration. PERICARDIAL EFFUSION There is no evidence of significant pericardial effusion. Critical Notification Critical Value: No <Conclusion> The left ventricular systolic function is normal. The Ejection Fraction is 55-60%. There is normal LV segmental wall motion. Trace tricuspid regurgitation with an estimated PAP of 26 mmHg. There is no evidence of significant pericardial effusion. Signed by : Elaina Almazan, Electronically Approved : 05/30/2020 12:14:11
== END ==
LOC: ECHO 12:31
PROVIDERS: ATTEND Internal Medicine Cardiovascular Disease
DX: I25.10 Atherosclerotic heart disease of native coronary artery without angina pectoris (principal); I51.7 Cardiomegaly
CPT/HCPCS: 93306

== ENCOUNTER → 2020-06-19 | Outpatient (CLI) | payer MEDICARE ==
--- NOTE | 2020-06-26 09:14 | RAD ---
MR#: [id number] Date of Study: 06/19/2020 Ordering Physician: ELAINA ZAMARRIPA, Referring Physician: ELAINA ZAMARRIPA, Tech: Rhys Noyola MBA, RDMS, RVT, RDCS, RTR APPROVED REPORT Patient Location: OUT-PATIENT Laterality:Bilateral Indications Bruit Doppler Spectral Velocity Analysis Right Left pCCA 102/18 cm/spCCA 98/21 cm/s mCCA 100/15 cm/smCCA 112/22 cm/s dCCA 84/17 cm/sdCCA 93/21 cm/s Bulb 74/13 cm/sBulb 127/22 cm/s ECA 150/ cm/sECA 239/ cm/s pICA 231/43 cm/spICA 89/21 cm/s Yovany 176/37 cm/smICA 90/25 cm/s dICA 112/26 cm/sdICA 83/24 cm/s Vert. 58/ cm/sVert. 50/ cm/s Subcl. 214/ cm/sSubcl. 246/ cm/s ICA/CCA 2.26ICA/CCA 0.92 Findings Grayscale images of the bilateral common carotid arteries demonstrates significant heterogeneous plaq ue at the level of the bilateral carotid bulbs. On the right side there is likely greater than 70% stenosis involving the internal carotid artery. O n the left side there is complex plaque localized at the distal common carotid artery extending into the external carotid artery although based on velocity criteria overall there is 0 to less than 50% s tenosis. ICA to CCA ratios are elevated at 2.3 on the right side and within normal limits on the left side. Bilateral subclavian velocities and vertebral velocities are within normal limits. Critical Notification Critical Value: No <Conclusion> 1. Complex bilateral carotid plaque with greater than 70% stenosis on the right side, recommend furt her evaluation with CT angiography of the head and neck. Signed by : Jake Sands, Electronically Approved : 06/26/2020 09:13:38
== END ==
LOC: US 06:53
PROVIDERS: ATTEND Internal Medicine Cardiovascular Disease
DX: I65.23 Occlusion and stenosis of bilateral carotid arteries (principal)
CPT/HCPCS: 93880

== ENCOUNTER → 2020-07-03 | Outpatient (CLI) | payer MEDICARE ==
[~2020-07-03] MED LIST changes: +CONTRAST GIVEN. MC PRN; +IOHEXOL 300 MG/ML 100ML VIAL. IV ONE
[2020-07-03 10:30] LABS: GFR 74.1
--- NOTE | 2020-07-04 09:51 | RAD ---
PQRS Compliance Statement: One or more of the following individualized dose reduction techniques were utilized for this examinat ion: 1. Automated exposure control 2. Adjustment of the mA and/or kV according to patient size 3. Use of iterative reconstruction technique CTA NECK Clinical Indication: Reason: carotid stenosis Comparison: None. Technique: Helical CT imaging from inferior to the aortic arch to the skull base is performed after 7 5 cc of Omnipaque [address] angiogram protocol. 3-D MIP reconstructions of the cervica l carotid arteries are performed. PQRS Compliance Statement - Stenosis calculations for CT, MR and conventional angiography are based u tasha measurement of the distal ICA diameter in accordance with the NASCET methodology. Stenosis calcu lations for carotid ultrasound studies are derived from validated velocity criteria which are known t o correlate with the NASCET methodology. Findings: Atherosclerotic aortic arch. Aortic arch branches are patent. There is atherosclerotic calcification of the carotid arteries. The right common carotid artery is patent. There is chronic mural thrombus and atherosclerotic calcif ication at the carotid bifurcation. There is near occlusion at the origin of the right internal carot id artery, axial image 171, sagittal image 165. The stenosis involves a 1 cm segment. The cervical ri ght internal carotid artery is otherwise patent. There is mild stenosis of the petrous right ICA. The re is moderate stenosis of the cavernous right ICA, incompletely imaged. The left common carotid artery is patent. There is atherosclerotic calcification at the carotid bifur cation. No more than mild stenosis at the origin of the left internal carotid artery. There is a foca l dissection near the origin of the left internal carotid artery, image 175. The cervical left photography intern al carotid artery is otherwise without significant stenosis. There is moderate stenosis of the cavern ous left internal carotid artery due to atherosclerotic calcification, incompletely imaged. The cervical vertebral arteries are patent. The right vertebral artery is dominant. There is a vessel in the anterior right temporal lobe, incompletely characterized. There is no cervic al adenopathy. The thyroid, submandibular, and parotid glands are symmetric. There are CABG changes, incompletely imaged. The upper lungs are clear, there is mild emphysema. There is degenerative spondy losis of the cervical spine. There is a left maxillary sinus mucous retention cyst or polyp. IMPRESSION: 1. There is near occlusion of a 1 cm segment at the origin of the right internal carotid artery. 2. There is atherosclerotic calcification and moderate stenosis of the bilateral cavernous internal carotid arteries, incompletely imaged. Electronically signed by: Steve Linn MD (07/04/2020 9:49 AM) [id number]
== END ==
LOC: CT 09:53
PROVIDERS: ATTEND Internal Medicine Cardiovascular Disease
DX: I65.23 Occlusion and stenosis of bilateral carotid arteries (principal); I70.0 Atherosclerosis of aorta; M47.812 Spondylosis without myelopathy or radiculopathy, cervical region
CPT/HCPCS: 36415; 70498; 82565; 84520; Q9967

== ENCOUNTER → 2020-07-06 | Outpatient (CLI) | payer MEDICARE ==
[~2020-07-06] MED LIST changes: -IOHEXOL 300 MG/ML 100ML VIAL. IV ONE; +IOHEXOL 350 MG/ML 100 ML VIAL. IV ONE
--- NOTE | 2020-07-06 12:55 | RAD ---
PQRS Compliance Statement: One or more of the following individualized dose reduction techniques were utilized for this examinat ion: 1. Automated exposure control 2. Adjustment of the mA and/or kV according to patient size 3. Use of iterative reconstruction technique PQRS Compliance Statement: One or more of the following individualized dose reduction techniques were utilized for this examinat ion: 1. Automated exposure control 2. Adjustment of the mA and/or kV according to patient size 3. Use of iterative reconstruction technique CTA ABDOMEN AND PELVIS WITHOUT IV CONTRAST 07/06/2020 8:29 AM Indication: Abdominal aortic aneurysm Comparison: CT abdomen/pelvis 09/23/2014 TECHNIQUE: Multiple axial CT images of the abdomen and pelvis were obtained after the intravenous adm inistration of 90 mL Omnipaque 350. Coronal and sagittal reformats are provided. Maximum intensity pr ojection images are provided. FINDINGS: Lung bases are clear. Heart size is within normal limits. Coronary artery vascular calcifications are partially profiled. Gallbladder surgically absent. Liver, spleen, bilateral adrenal glands and pancr eas are normal in appearance. No pathologically enlarged lymph nodes are identified in the abdomen an d pelvis. There is no free fluid or free intraperitoneal air. There is mild to moderate colonic diver ticulosis. No adjacent plantar changes are identified. Appendix is normal. No bowel obstruction or in flammation. The kidneys enhance symmetrically. There is no suspicious renal mass. There is no hydrone phrosis. There are no suspected calculi within the kidneys, ureters or urinary bladder. Infrarenal abdominal aorta measures 5.2 x 5.6 cm. Opacified lumen measures up to 3.0 x 3.1 cm with si gnificant eccentric noncalcified atheromatous plaque measuring up to 2.5 cm in thickness. Common maninder c arteries are widely patent with coarse dense calcified plaque. Mild irregularity of the internal an d external iliac arteries secondary to calcified atheromatous plaque. Urinary bladder is within pat l limits given degree of distention. No suspicious pelvic mass. No suspicious osseous abnormality is identified. IMPRESSION: 1. Infrarenal abdominal aortic aneurysm measures 5.2 x 5.6 cm. No evidence for aortic dissection, as described in detail above. Electronically signed by: Breanna Collado MD (07/06/2020 12:53 PM) [id number]
== END ==
LOC: CT 07:51
PROVIDERS: ATTEND Specialist
DX: K57.30 Diverticulosis of large intestine without perforation or abscess without bleeding (principal); I71.4 Abdominal aortic aneurysm, without rupture; I25.10 Atherosclerotic heart disease of native coronary artery without angina pectoris; R59.9 Enlarged lymph nodes, unspecified; I70.0 Atherosclerosis of aorta; Z90.49 Acquired absence of other specified parts of digestive tract
CPT/HCPCS: 74174; Q9967

== ENCOUNTER → 2021-03-30 | Outpatient (CLI) | payer MEDICARE ==
[~2021-03-30] MED LIST changes: -CONTRAST GIVEN. MC PRN; -IOHEXOL 350 MG/ML 100 ML VIAL. IV ONE
--- NOTE | 2021-03-30 16:50 | CARD ---
MR#: [id number] Date of Study: 03/30/2021 Ordering Physician: ELAINA ZAMARRIPA, Referring Physician: Allie SEE: Vadim Avitia [facility] APPROVED REPORT EXAM: Two-dimensional and M-mode echocardiogram with Doppler and color Doppler. Other Information Quality : AverageHR: 49bpm Rhythm : BradycardiaTechnically limited study due to body habitus. INDICATION Cardiac Disease: CAD Surgery/Intervention CABG: RISK FACTORS Hypertension Smoking COPD 2D DIMENSIONS IVSd1.3 (0.7-1.1cm)LVDd4.8 (3.9-5.9cm) LVOT Diameter2.2 (1.8-2.4cm)PWd1.3 (0.7-1.1cm) LVDs2.4 (2.5-4.0cm)FS (%) 50.1 % SV88.4 mlLVEF(%)81.4 (>50%) Aortic Valve AoV Peak Jay.139.6cm/sAoV VTI26.7cm AO Peak GR.7.8mmHgLVOT Peak Jay.146.0cm/s AO Mean GR.3mmHgAVA (VMAX)3.93cm2 Mitral Valve MV E Lhfbfpee69.3cm/sMV E Peak Gr.3mmHg MV DECEL [id number] A Dzojltcm26.1cm/s MV E Mean Gr.1mmHgE/A Ratio0.8 Pulmonary Valve PV Peak Egewazxc64.3cm/s Tricuspid Valve TR P. Ywzzqgvl724dm/sTR Peak Gr.24mmHg Pulmonary Vein S1 Byzyiysv24.5cm/sD2 Etbdxatb70.0cm/s LEFT VENTRICLE The left ventricle is normal size. There is mild concentric left ventricular hypertrophy. The left ve ntricular systolic function is normal and the ejection fraction is within normal range. EF 55% There is normal LV segmental wall motion. The left ventricular diastolic function and filling is normal for age. No left ventricle thrombus noted on this study. There is no ventricular septal defect visualize d. There is no left ventricular aneurysm. There is no mass noted in the left ventricle. RIGHT VENTRICLE The right ventricle is normal size. There is normal right ventricular wall thickness. The right ventr icular systolic function is normal. ATRIA The left atrium is mildly dilated. The right atrium size is normal. The interatrial septum is intact with no evidence for an atrial septal defect or patent foramen ovale as noted on 2-D or Doppler imagi ng. AORTIC VALVE The aortic valve is mildly calcified but opens well. Doppler and Color Flow revealed no significant a ortic regurgitation. There is no significant aortic valvular stenosis. There is no aortic valvular ve getation. MITRAL VALVE The mitral valve is normal in structure and function. There is no evidence of mitral valve prolapse. There is no mitral valve stenosis. Doppler and Color-flow revealed trace mitral regurgitation. TRICUSPID VALVE The tricuspid valve is normal in structure and function. Doppler and Color Flow revealed trace to mil d tricuspid regurgitation. The PA pressure was estimated at 29 mmHg. There is no tricuspid valve prol apse or vegetation. There is no tricuspid valve stenosis. PULMONIC VALVE The pulmonic valve is not well visualized. Doppler and Color Flow revealed no pulmonic valvular regur gitation. There is no pulmonic valvular stenosis. GREAT VESSELS The aortic root is normal in size. The ascending aorta is normal in size. The IVC is normal in size a nd collapses >50% with inspiration. PERICARDIAL EFFUSION There is no pleural effusion. There is no evidence of significant pericardial effusion. Critical Notification Critical Value: No <Conclusion> The left ventricular systolic function is normal and the ejection fraction is within normal range. EF 55% There is normal LV segmental wall motion. Signed by : Jake Sands, Electronically Approved : 03/30/2021 16:49:48
== END ==
LOC: ECHO 12:39
PROVIDERS: ATTEND Internal Medicine Cardiovascular Disease
DX: I08.2 Rheumatic disorders of both aortic and tricuspid valves (principal); I25.10 Atherosclerotic heart disease of native coronary artery without angina pectoris
CPT/HCPCS: 93306

== ENCOUNTER → 2021-04-02 | Outpatient (CLI) | payer MEDICARE ==
[2021-04-02 08:40] LABS: CHOLESTEROL/HDL RATIO 2.4
== END ==
LOC: LAB 07:45
PROVIDERS: ATTEND Internal Medicine Cardiovascular Disease
DX: E78.5 Hyperlipidemia, unspecified (principal)
CPT/HCPCS: 36415; 80061